=== PATIENT | female | born 1960 | race American Indian/Alaskan Native ===

== ENCOUNTER 2025-03-09 13:14 | Emergency (ER) | payer BC ==
[~2025-03-09] VITALS: Ht 160 cm; Wt 74.2 kg
--- NOTE | 2025-03-09 15:34 | Physician Documentation ---
History of Present Illness ~ Chief Complaint: Hip pain Stated Complaint: L HIP R/O DVT Time Seen by MD: 15:17 HPI 65-year-old female presents to the emergency department reporting that she has had inability to bear weight on the left leg for the last 48 hours. She denies any recent injury, but does note that late last week she was cleaning out a refrigerator. She notes a history of trauma to the hip and pelvis about 15 years ago. No recent injury. No fevers or chills, chest pain or shortness of breath, no symptoms of illness whatsoever. No tenderness to palpation of the hip. The pain is only reproducible with ambulation. Medication Reconciliation Allergies: Coded Allergies: No Known Allergies (Unverified , 03/09/25) Scheduled PRN Hydrocodone Bit/Acetaminophen (Hydrocodon-Acetaminophen 5-325), 1 TAB PO Q12H PRN PRN for pain Review of Systems ROS As stated above in the HPI, otherwise all systems are reviewed and negative. Physical Exam Vital Signs: Temperature: 98.4, Source: Temporal, Heart Rate: 70, Respiratory Rate: 16, BP: 161/92, Pulse Oximetry: 97, Weight: 74.250 Oxygen Flow Rate: 0 Physical Exam General: Alert, no apparent distress. Neck: Full range of motion. Respiratory: Lungs clear, no respiratory distress. Chest: No accessory muscle use. Cardiovascular: Regular rate and rhythm, no murmurs. Gastrointestinal: Soft, nontender, nondistended. Bowels sounds present. Extremities: Painful weight bearing left hip. No instability with palpation left hip/pelvis. No TTP over pelvis. Neurologic: Oriented x4. Psychiatric: Normal mood and affect. Skin: Normal color, warm and dry. No edema, no ecchymosis. No evidence of DVT or cellulitis to either lower extremity. Progress Results/Orders Results/Orders Orders - ADWOA HERNÁNDEZ NP Hip Unilateral 2 Views (03/09/25 15:51) Ct Lower Extremity (03/09/25 16:49) Hydrocodone/Apap 5/325mg Tab ([place] 5/32 (03/09/25 18:00) Completed Orders - ADWOA HERNÁNDEZ NP Ibuprofen Tablet (Motrin Tablet) (03/09/25 15:50) Hydrocodone/Apap 5/325mg Tab ([place] 5/32 (03/09/25 15:50) Hip Unilateral 2 Views (03/09/25 15:51) Ct Lower Extremity (03/09/25 16:49) Medications Received in ER Medications (Trade) Dose Ordered Sig/Koko Route PRN Reason Start Time Stop Time Status Last Admin Dose Admin (Motrin tablet) 400 mg ONCE ONCE PO 03/09/25 15:50 03/09/25 15:51 DC 03/09/25 16:05 400 MG ([place] 5/325mg tablet) 1 tab ONCE ONCE PO 03/09/25 15:50 03/09/25 15:51 DC 03/09/25 16:05 1 TAB Vital Signs 03/09/25 03/09/25 13:22 16:05 Temp 98.4 Pulse 70 Resp 16 18 B/P (MAP) 161/92 Pulse Ox 97 O2 Flow Rate 0 EKG/XRAY/CT/US/VASC/MRI Bone/Soft Tissue X-Ray (Spine) : Additional Comment DIAGNOSTIC RADIOLOGY Patient: RANDELL LOVE Medical Record: [id number] : 1960, Age: 65 Sex: Female Location: ER Patient Status: REG ER Service Date/Time: 03/09/251550 Ordering Physician: ADWOA HERNÁNDEZ NP Exam: HIP UNILATERAL 2 VIEWS CLINICAL INDICATION: Left hip pain, inability to bear weight TECHNIQUE: DI HIP UNILATERAL 2 VIEWS Comparison: None FINDINGS/IMPRESSION: : There is no evidence of acute fracture or dislocation. Soft tissues are unremarkable. Moderate degenerative changes of bilateral hips. Electronically Signed by:ROSCOE DOWLING MD Date & Time: 03/09/251609 Dictated by: ROSCOE DOWLING MD Dictation date and time: 03/09/251609 Primary Care Provider: NO PRIMARY CARE PROVIDER cc: ADWOA HERNÁNDEZ PAPER HANGER ~ CT : Impression [address] [address] CAT SCAN Patient: RANDELL LOVE Medical Record: [id number] [facility] : 1960, Age: 65 Sex: Female Location: ER Patient Status: [facility] ER Service Date/Time: 03/09/251648 Ordering Physician: ADWOA HERNÁNDEZ NP Exam: CT LOWER EXTREMITY CLINICAL INFORMATION: 65 years old, Female; Left hip pain, unable to bear weight. TECHNIQUE: Axial CT images of the left hip were obtained without IV contrast. Coronal and sagittal reformatted images were obtained, reviewed, and stored. All CT scans at this medical facility are performed using dose modulation techniques as appropriate to a performed exam including the following: Automated exposure control was utilized; adjustment of the MA and/or KV according to patient size; and use of iterative reconstruction technique. CTDIvol = 15.43 mGy DLP = 592.61 mGy-cm COMPARISON: Radiographs from earlier the same day. FINDINGS: No evidence of acute fracture or dislocation. There is a lucent lesion along the medial aspect of the left femoral head / neck junction measuring up to 1.8 cm, possibly a benign cyst, although not optimally characterized on this exam. No significant soft tissue abnormality identified. Visualized intrapelvic anatomy appears grossly unremarkable. IMPRESSION: 1. No evidence of acute fracture. 2. Lucent lesion in the left proximal femur, most likely benign etiology, although further evaluation with MRI, without and with contrast is recommended. Electronically Signed by:VISHAL JACKSON DO Date & Time: 03/09/251745 Dictated by: VISHAL JACKSON DO Dictation date and time: 03/09/251745 Primary Care Provider: NO PRIMARY CARE PROVIDER cc: ADWOA HERNÁNDEZ NP ~ Medical Decision Making Additional Comment 65-year-old female presented to the emergency department due to painful weight- bearing on the left for the last two days without injury. She does note remote history of trauma to the left hip and pelvis approximately 15 years ago, which required extensive recovery. No recent trauma, has been active cleaning out a refrigerator, but notes no falls or any other issues. Presents walking on crutches due to painful weight-bearing. Her bought these of the store. X-ray was pursued, no acute findings identified. Moderate arthritic changes noted per xray of both hips. CT showed a likely benign lesion to the left femur, for which follow up at with an outpatient MRI was recommended. The patient was discharged with a few hydrocodone and instructions to follow up with the primary care provider for orthopedics referral and MRI order. Departure Time of Disposition: 17:22 Disposition: 01 HOME / SELF CARE / HOMELESS Impression: Primary Impression: Hip pain Qualified Codes: M25.552 - Pain in left hip Condition: Stable Discharge Instructions: Hip Pain Additional Instructions: Your x-ray was normal. The CT scan showed a benign appearing lesion to the left femur area. This needs further follow up with your primary care. An MRI would most likely be appropriate. You were also being provided with the on-call orthopedist phone number. You will likely need a referral from your primary care to him. You are being sent with a few hydrocodone to use for pain. Cautioned for drowsiness, no driving x6 hours after taking a dose. Continue to use crutches. Please return if worse. Referrals: NO PRIMARY CARE PROVIDER (PCP) LUISA MUÑIZ Jr., MD Prescriptions Hydrocodone Bit/Acetaminophen (Hydrocodon-Acetaminophen 5-325) 5 Mg-325 Mg Tablet 1 TAB PO Q12H PRN PRN for pain for 5 Days, #10 TAB Prov: ADWOA HERNÁNDEZ NP 03/09/25 Education Educated: Patient, Family Educated regarding: diagnosis, treatment, prognosis, need for follow up Signature Scribe Signature: no scribe Attestation: The note accurately reflects work and decisions made by me.Adwoa Centeno NP 03/09/25 15:49 ADWOA HERNÁNDEZ NP Mar 09, 2025 15:34
[2025-03-09] MEDS: HYDROcodone/acetaminophen 5mg/325mg tablet PO ONE ×2 (16:05→18:06)
[2025-03-09] MEDS: ibuprofen tablet 400 MG TABLET PO ONE (16:05)
--- NOTE | 2025-03-09 16:12 | RADIOLOGY REPORT ---
CLINICAL INDICATION: Left hip pain, inability to bear weight TECHNIQUE: DI HIP UNILATERAL 2 VIEWS Comparison: None FINDINGS/IMPRESSION: : There is no evidence of acute fracture or dislocation. Soft tissues are unremarkable. Moderate degenerative changes of bilateral hips.
--- NOTE | 2025-03-09 17:48 | RADIOLOGY REPORT ---
CLINICAL INFORMATION: 65 years old, Female; Left hip pain, unable to bear weight. TECHNIQUE: Axial CT images of the left hip were obtained without IV contrast. Coronal and sagittal re formatted images were obtained, reviewed, and stored. All CT scans at this medical facility are perf ormed using dose modulation techniques as appropriate to a performed exam including the following: Au tomated exposure control was utilized; adjustment of the MA and/or KV according to patient size; and use of iterative reconstruction technique. CTDIvol = 15.43 mGy DLP = 592.61 mGy-cm COMPARISON: Radiographs from earlier the same day. FINDINGS: No evidence of acute fracture or dislocation. There is a lucent lesion along the medial asp ect of the left femoral head / neck junction measuring up to 1.8 cm, possibly a benign cyst, although not optimally characterized on this exam. No significant soft tissue abnormality identified. Visuali zed intrapelvic anatomy appears grossly unremarkable. IMPRESSION: 1. No evidence of acute fracture. 2. Lucent lesion in the left proximal femur, most likely benign etiology, although further evaluation with MRI, without and with contrast is recommended.
[2025-03-09] MEDS ORDERED: HYDR-3964 PO (17:53)
[2025-03-09 18:11] VITALS: BP 156/89; PULSE 78; RESP 16; TEMP 98.4; O2SAT 98
== END 2025-03-09 18:13 | disposition home or self-care (01) ==
LOC: ER 13:15
DX: M25.552 Pain in left hip (principal)
CPT/HCPCS: 73502; 73700; 99284

== ENCOUNTER 2025-08-07 13:59 | Inpatient (IN) | payer BC ==
[~2025-08-07] VITALS: Ht 162.6 cm; Wt 63.7 kg
--- NOTE | 2025-08-07 14:26 | Physician Documentation ---
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 I received a phone call from the patient's oncologist, Dr. Renae. 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 It is compressing the bronchi, and he is concerned about impending airway compromise. He spoke to Dr. Wright, our surgeon who agreed to biopsy the mass. The patient will be sent in for admission for further workup and treatment. He does request a CT scan of the neck and chest with contrast. Here in the ED, the patient tells me that she is currently breathing okay. She tells me it is difficult sometimes to breathe especially when she exerts herself. She denies any difficulty swallowing. She does report having some chronic discomfort in her throat. Medication Reconciliation Allergies: Coded Allergies: No Known Allergies (Unverified , 08/07/25) Review of Systems Constitutional: Reports: weakness; Denies: fever Respiratory: Reports: shortness of breath Physical Exam Vital Signs: Temperature: 97.2, Source: Temporal, Heart Rate: 104, Respiratory Rate: 20, BP: 131/86, Pulse Oximetry: 99, Weight: 63.700 Oxygen Flow Rate: 0 Physical Exam General: This is a pleasant and nontoxic appearing middle-aged woman, not in acute distress HEENT: Atraumatic, oropharynx is dry, no obvious swelling in the oropharynx Neck: The patient has multiple firm enlarged lymph nodes in the anterior chain. She does have some coarse upper airway noises but no significant stridor Heart: Mild tachycardic, appears regular Lungs: Coarse upper airway noises, but lungs are otherwise clear, normal work of breathing, normal oxygen saturation on room air Neuro: Alert and oriented Psychiatric: Calm and cooperative with exam Progress Results/Orders Results/Orders Orders - MERRITT DONIS MD Ct Neck Soft Tissues (08/07/25 15:50) Page Hospitalist (08/07/25 15:07) Ct Chest Abdomen Pelvis Iv Con (08/07/25 15:52) Completed Orders - MERRITT DONIS MD Cbc/Diff (08/07/25 14:36) CMP (08/07/25 14:36) Pt Inr (08/07/25 14:36) Ct Neck Soft Tissues (08/07/25 15:50) Ct Chest Abdomen Pelvis Iv Con (08/07/25 15:52) Iohexol 300mg/Ml 50ml Inj. (Omnipaque-30 (08/07/25 15:34) Iohexol 300mg/Ml 100ml Inj. (Omnipaque-3 (08/07/25 15:34) Vital Signs 08/07/25 08/07/25 08/07/25 14:03 16:00 16:07 Temp 97.2 97.2 Pulse 104 99 Resp 20 12 B/P (MAP) 131/86 136/80 (98) Pulse Ox 99 93 O2 Flow Rate 0 0 Laboratory Tests Test 08/07/25 14:50 White Blood Count 7.9 Red Blood Count 3.93 L Hemoglobin 11.3 L Hematocrit 34.4 L Mean Corpuscular Volume 87.5 Mean Corpuscular Hemoglobin 28.8 Mean Corpuscular Hemoglobin Concent 32.9 L Red Cell Distribution Width 14.8 H Platelet Count 320 Mean Platelet Volume 7.4 Neutrophils (%) (Auto) 77.1 H Lymphocytes (%) (Auto) 13.6 L Monocytes (%) (Auto) 7.4 Eosinophils (%) (Auto) 1.2 Basophils (%) (Auto) 0.7 Neutrophils # (Auto) 6.1 Lymphocytes # (Auto) 1.1 Monocytes # (Auto) 0.6 Eosinophils # (Auto) 0.1 Basophils # (Auto) 0.1 CBC Comment Prothrombin Time 11.4 INR International Normalized Ratio 1.1 Coagulation Comments Sodium Level 139 Potassium Level 3.4 L Chloride Level 98 L Carbon Dioxide Level 30.6 Anion Gap 10 Blood Urea Nitrogen 34 H Creatinine 0.94 H Estimated GFR/1.73 m2 60 BUN/Creatinine Ratio 36.2 H Glucose Level 103 Calcium Level 9.5 Total Bilirubin 0.9 Aspartate Amino Transf (AST/SGOT) 26 Alanine Aminotransferase (ALT/SGPT) 24 Alkaline Phosphatase 94 Total Protein 8.8 H Albumin 3.5 Globulin 5.3 H Albumin/Globulin Ratio 0.7 L Chemistry Comments EKG/XRAY/CT/US/VASC/MRI CT : Impression I personally interpreted the CT scan, and this shows a mediastinal mass, no upper airway obstruction Consults/PCP Consults/PCP : Additional Comment Consult: I spoke to Dr. Renae, oncology. He recommends admission for biopsy, and CT imaging. Consult: I spoke to Dr. Wright, surgeon. He agrees with CT chest and neck, and he will consult Consult: I spoke to the internal medicine service, for admission in the hospital Medical Decision Making Additional information obtaine: other Findings Spoke to the oncologist for further information Ear Diff. Dx: Considerations: Unlikely: Cerumen impaction Eye Diff. Dx: Considerations: Unlikely: Conjuctivits-allergic Nose Diff. Dx: Considerations: Unlikely: Avulsion Tooth Diff. Dx: Considerations: Unlikely: Aveolar osteitis Throat Diff Dx: Considerations: Unlikely: Esophageal candidiasis Additional Comment Differential diagnosis includes mediastinal mass, cancer, airway compromise, dehydration Assessment The patient presents with a mediastinal mass, with plan for admission for b iopsy. Here in the ED, her airway does not seem acutely compromised she is swallowing without apparent difficulty. I spoke to her oncologist as above. A CT scan was obtained which further evaluated the mediastinal mass. Surgery was also consulted as above. The patient will be admitted for further care. Departure Impression: Primary Impression: Mediastinal mass Referrals: NO PRIMARY CARE PROVIDER (PCP) Signature Scribe Signature: na Attestation: MERRITT Longoria MD Aug 07, 2025 14:26
[2025-08-07 15:11] LABS: MEAN PLATELET VOLUME 7.4 FL (7.4-10.4); RED CELL DISTRIBUTION WIDTH 14.8 % (11.5-14.5)
[2025-08-07 15:28] LABS: CREATININE 0.94 MG/DL (0.40-0.90); INR 1.1 INR; TOTAL CARBON DIOXIDE 30.6 MMOL/L (24-32); eCRCL 52 ML/MIN; eGFR 60 ML/MIN
[2025-08-07] MEDS ORDERED: iohexol 300mg/ml 100ml inj. ONE (15:34)
[2025-08-07] MEDS ORDERED: iohexol 300 MG/1 ML 50ml polymer ONE (15:34)
--- NOTE | 2025-08-07 16:08 | RADIOLOGY REPORT ---
COMPUTERIZED TOMOGRAPHY OF THE NECK WITH INTRAVENOUS CONTRAST CLINICAL HISTORY: mediastinal mass, difficulty breathing COMPARISON: CT CT CHEST ABDOMEN PELVIS IV CON W/ IV CONTRAST on DOS: 08/07/25 TECHNIQUE: The exam was performed on a multidetector scanner. Thin section spiral scans were acquired from the external auditory canals to the thoracic inlet during the bolus intravenous administration of contrast material. 2-D coronal and sagittal reformatted images were provided. Radiation optimization: All CT scans at this facility use at least one of these dose optimization techniques: Automated exposure control mA and/or kV adjustment per patient size (includes targeted exams where dose is matched to clinical indication) or iterative reconstruction. CONTRAST ADMINISTERED: 60 mL omnipaque 300, intravenously. RADIATION DOSE: CTDI: 14 mGy DLP: 436 mGy-cm FINDINGS: There is partial visualization of the large mediastinal mass surrounding the lower trachea and causing some mass effect upon it. The mass obliterates and is indistinguishable from the esophagus within the mediastinum. The mass extends into the AP window. The thyroid gland is grossly unremarkable. There is lymphadenopathy in the right supraclavicular and anterior cervical regions. There is a 2.1 cm right level 2 lymph node that appears The largest just inferior to the mandibular ramus. The upper airway is patent and grossly symmetric. The fossa of Rosenmuller are clear. The palatine and lingual tonsils are within normal limits. The intraorbital contents are grossly unremarkable. The visualized intracranial contents are within normal limits. There is trace fluid within the right maxillary sinus. No focal bony lesion is identified. There are degenerative changes in the visualized spine. IMPRESSION: Partial visualization of a mediastinal mass enveloping and causing mild mass effect on the trachea and obliterating the esophagus. Right supraclavicular and anterior cervical lymphadenopathy. The largest lymph node measures 2.1 cm just inferior to the right mandibular ramus. Trace fluid in the right maxillary sinus. Correlate clinically for acute sinusitis.
--- NOTE | 2025-08-07 16:42 | RADIOLOGY REPORT ---
Procedure: CT CT CHEST ABDOMEN PELVIS IV CON W/ IV CONTRAST 08/07/2025 03:41 PM Indication: mediastinal mass, cancer Comparison Study: None Technique: Axial images were obtained and reformatted in coronal and sagittal planes. All CT scans at this medical facility are performed using dose modulation techniques as appropriate to a performed exam including the following: Automated exposure control was utilized; adjustment of the MA and/or KV according to patient size; and use of iterative reconstruction technique. CT Dose: CTDI volume is 13.02 mGy. Dose-length product is 1098.86 mGy*cm FINDINGS: Chest: The thyroid gland is unremarkable. Heart size is within normal limits. No evidence of aortic aneurysm or dissection. Mild atherosclerotic calcification of the aorta. Pulmonary trunk is normal in size. There is large mediastinal mass encasing the trachea esophagus causing [id number]-sryanybp narrowing of the distal trachea with moderate narrowing of the bafkv-wgrzwyx-pluy-left main bronchi. There is poor visualization of the esophagus of the area of the mass. There is additional infrahilar soft tissue density lesion measuring up to 3 cm which appears inseparable from the mass and may represent part of the mass or lymphadenopathy. Right hilar lymphadenopathy. No pneumothorax or pleural effusion. Lingula, right middle lobe and Bilateral lower lobe atelectasis. 1.2 cm left posterior upper lobe partially calcified nodule which may represent a partially calcified granuloma. Calcified nodule within the right lateral breast. Soft tissues otherwise unremarkable. Right axillary lymphadenopathy measuring up to 1.5 cm in short axis. Right lower neck prominent lymph nodes measuring up to 1.3 cm in short axis. No evidence of acute osseous abnormalities. Sclerotic focus of the right proximal humerus which may represent a small bone island. Multilevel eeqd-ki-hyfdxspn degenerative changes of the thoracic spine. Abdomen and pelvis: Subtle micronodular contour of the liver. 2.7 cm hypodense right hepatic lobe lesion which does not measure simple fluid with additional 0.2 cm left hepatic lobe hypodense lesion which does not measure simple fluid smaller subcentimeter hypodense left hepatic lobe lesions that are too small to characterize. Subtle subcentimeter hypodense splenic lesions are noted. Status post cholecystectomy. Pancreas and right adrenal gland are unremarkable. 2.1 cm left adrenal nodule measuring up to 93 Hounsfield units. 1.2 cm right renal upper pole hypodense lesion which does not measure as simple fluid, adjacent to an area of possible scarring. Contrast is noted within the bilateral renal collecting system. Urinary bladder is unremarkable. Uterus and adnexa are unremarkable. Stomach is unremarkable. Mild wall Thickening of proximal Small bowel loops which may be due to inadequate distention with mild enteritis not excluded. Appendix is unremarkable. Small to moderate amount of fecal material within the colon. No evidence of intraperitoneal free air or free fluid. There is retroperitoneal and pelvic sidewall lymphadenopathy largest of the pelvic sidewall measuring up to 2.2 cm on the right with largest retroperitoneal node measuring up to 0.3 cm adjacent to the L5 vertebral body. Moderate to heavy atherosclerotic calcification of the aorta and bilateral iliacs with aneurysmal dilatation of the infrarenal aorta up to 3.4 cm. Mild prominence of the left pelvic vasculatures with splenorenal varicose veins noted. Prominent bilateral inguinal lymph nodes measuring up to 1.3 cm Soft tissues are unremarkable. Suggesting hemangioma within the L2 vertebral body. Grade 1 anterolisthesis of L5 on S1 with bilateral chronic L5 pars defect. Diffuse demineralization. Lytic lesion of the femoral head with anterior cortical disruption, concerning for metastasis IMPRESSION: Large mediastinal mass encasing the trachea and esophagus with indistinctness of the esophagus at the level of the mass, moderate narrowing of the sqddx-sfuszmq-gxgo-left main bronchi and mild narrowing of the distal trachea. Right hilar with Suggested infrarenal lymphadenopathy and multiple retroperitoneal , pelvic sidewall , right axillary and bilateral inguinal prominent lymph nodes which are most likely neoplastic. Hypodense hepatic lesions concerning for metastasis. Subtle hypodense splenic lesions concerning for possible metastasis. 1.2 cm right renal upper pole hypodense lesion which does not measure simple fluid. Renal ultrasound is recommended for further evaluation. Ill-defined 2.1 cm left adrenal nodule. Adrenal protocol CT / MRI should be considered for further evaluation. Lytic left femoral head lesion most consistent with metastasis. Aneurysmal dilatation of the infrarenal aorta up to 3.4 cm. Additional findings as above.
[2025-08-07] MEDS ORDERED: magnesium Cl slow-release 64mg tablet PO PRN (18:20)
[2025-08-07] MEDS ORDERED: magnesium sulf-water 2g/50mL 50 ML IV PRN (18:20)
[2025-08-07] MEDS ORDERED: bisacodyl 10mg suppository rectal RC PRN (18:20)
[2025-08-07] MEDS ORDERED: magnesium sulf-water 4G/100mL 100 ML IV PRN (18:20)
[2025-08-07] MEDS ORDERED: potassium Cl 20 mEq SR tablet PO PRN ×2 (18:20)
[2025-08-07] MEDS ORDERED: HYDROmorphone/PF 0.2 MG/ML SYRINGE IV PRN (18:20)
[2025-08-07] MEDS ORDERED: ondansetron/PF 4mg/2ml inj IV PRN (18:20)
[2025-08-07] MEDS ORDERED: magnesium hydroxide 30ml (MOM) UD suspension PO PRN (18:20)
[2025-08-07] MEDS ORDERED: mag hydrox/Alum hydrox/simeth 30ml oral suspension PO PRN (18:20)
--- NOTE | 2025-08-07 19:07 | HISTORY AND PHYSICAL-Residence ---
History & Physical Providers to CC Resident Creating Document: VERNA SRINIVASAN RES ~ History of Present Illness Reason for Admit\Complaint: Acute respiratory distress w/ advanced mets from unknown primary History of Present Illness A 65 years old subjectively previously healthy female with hypertension, thyroid disorder, and S/p cholecystectomy, who presented with the progressive worsening shortness of breath, stuck feeling at throat, hearing loss and progressive widespread body aching with losing ability to ambulate independently along with the changes in the weight and appetite over past 3-4 weeks. Pt has bilateral hearing difficulties more on the left side. She was seen in ER with her . Joaquín Mehta recommended her to be hospitalized here to obtain the imaging scan and lymph node biopsy. The patient endorsed that she started having the progressive shortness of breath since she had pneumonia on last November which was associated with the intermittent coughing up of the blood over 3-4 weeks. She denied long distance traveling history, recent cancer diagnosis and its treatment. She denied for the chest pain/pressure/discomfort, palpitations orthopnea and PND, bilateral ankle swelling, and passing out episodes. She noticed that her ability to walk independently was compromised since she was here in ER on the last March with the complaint of left hip pain after she lifted the heavy objects, where she found no pathological abnormalities over the bone imaging. Since then, she started having dependent on walking aids along with the numbness over her left leg, and widespread pain over her both shoulder blades and lower back with the shooting pain and numbness over both arms within 3-4 weeks. She did not find any special position related to her pain, but was associated with the repetitive movements of the muscle would make worse. No special time of occurrence. Denied any prodromal flu like symptoms and GI abnormalities including bloody bowel movement and ascending paralysis. She denied for any evening night sweat and fever although she reported for the intentional weight loss 10-15 lbs in 2 months with declining appetite. She subjectively denied for any generalized lumps and bumps. Denied for the nausea and vomiting especially at the night time, fluctuating yellow coloration of skin and sclera history, any new dyspesisa and new malaise and lethargic. She is menopause and no special background Gynae history. She started noticing something stucking feeling over the base of her neck which was associated with the difficulty in swallowing especially for the food which is progressive in nature without providing any history of accidental or intentional swallowing of the corrosive substances. She could swallow her own saliva for now. Not associated with the special time of difficulty swallowing over a day. Also noticed about the changes in her voices over the last 3-4 weeks along with the intermittent wheezing for which she was using the inhalers. She started having the progressive bilateral hearing loss over the 3-4 weeks but denied for any new visual changes, increasing bony circumferences, and headaches etc. She denied for losing hair and dry skin, but cold intolerance, constipation. Allergies: Coded Allergies: No Known Allergies (Unverified , 08/07/25) Home Medications Home Medications Active Past Medical History Past Medical History Hypertension, thyroid disorder on levothyroxine Past Surgical History Surgical History Comment S/p cholecystectomy Past Social History Social History Comment She is currently living with her who is helping her out. She has been smoking over 30 years, cut down to 16-27 cigarettes per day, cutting back on drinking alcohol with a 2-3 days per week with one shot of Vodka. She denied using illicit drugs. She is depending on the walking aids for the ambulation. ROS All Other Systems: Reviewed and Negative ROS Constitutional: No fever, chills, dizziness, weight gain Eyes: No pain, erythema, discharge, blurring of vision ENT: No sore throat, epistaxis, tinnitus Cardiovascular: No chest pain, chest pressure, chest discomfort, palpitations, syncope, lower extremity edema, paroxysmal nocturnal dyspnea Respiratory: As in HPI Gastrointestinal: Declining appetite. No nausea, vomiting, diarrhea, hematemesis, abdominal pain, bloating, melena or fresh blood Genitourinary: No frequency, urgency, nocturia, hematuria or dysuria Musculoskeletal: No arthralgias or myalgias Integumentary: No change in skin, hair, nails. No swelling, bruising, abrasions Neurologic: No headache, neck pain, numbness or tingling of the extremities, weakness Psychiatric: No delusions, depression, loss of interest in normal activity or change in sleep pattern, hallucinations, suicidal ideations Endocrine: No fatigue, weakness, polydipsia, polyuria, change in appetite, heat or cold intolerance, sweating, dry skin Hematological: No bleeding, petechiae, bruising Allergies: No asthma or urticaria Constitutional: Reports: weakness; Denies: fever Respiratory: Reports: shortness of breath Exam Vitals: Vital Signs Date Time Temp Pulse Resp B/P (MAP) Pulse Ox O2 Delivery O2 Flow Rate FiO2 08/07/25 16:07 08/07/25 16:00 97.2 99 12 93 0 General: General: Well alert, well oriented, not confused, not agitated, not in acute distress, well cooperated during the physical. HEENT: HEENT: Conjunctive are pink, sclerae clear, no icterus, pupil is equal in both sides, reactive to light, no ear discharge, no pharyngeal erythema or an edema, mouth and lips are dry. Neck: Neck: Supple, no JVD, no lymphadenopathy and thyromegaly. Lymphadenopathy: largest one 3 x 4 cm oval shaped firm to hard in consistency partially mobile located at the right anterior cervical neck, numerous small hard lymph nodes along the lateral border of SCM muscle, supra clavicular LN but no subclavicular LN were examined. NO Bilateral axillary LN and Inguinal LN were large enough to be palpated except for the some small LN in the right axilla. NO submentle and submandibular LN adenopathy. NO occipital and posterior cervical lymphadenopathy. Chest: Lungs:Equal air entry on both lungs, widespread rhonchi bilaterally Cardiovascular: Heart: S1-S2 regular sinus rhythm and, regular rate, no gallops, no rubs, no murmurs Abdomen: Abdomen: No visible peristalsis, Bowel sounds present on auscultation, soft, nontender, no guarding, no rigidity Extremities: Extremities: No obvious deformities, no pitting edema bilaterally, capillary refill intact, able to wiggle toes both sides, peripheral pulsations are intact on both sides. some calf muscle wasting were noted. Central Nervous System: TELEPHONE CLAIMS REPRESENTATIVE: No focal neurological deficits, no motor and sensory weakness in all 4 extremities, could move all 4 extremities Musculoskeletal: Musculoskeletal: No joint swelling, deformities, inflammations, and no scoliosis and back tenderness Skin: Skin: No active skin lesions and rashes Diagnostic Data Last Recorded Lab Results: 08/07/25 1450 08/07/25 1450 Diagnostic Data: Laboratory Tests Test 08/07/25 14:50 Prothrombin Time 11.4 SECONDS (9.0-12.0) INR International Normalized Ratio 1.1 INR Coagulation Comments Counseling Services Smoking & Tobacco Cessation: > 10 Minutes Advance Care Planning Advanced Care plannin - 30 Minutes Additional Plan A 65 years old subjectively previously healthy female with hypertension, thyroid disorder, and S/p cholecystectomy, who presented with the progressive worsening shortness of breath, stuck feeling at throat, hearing loss and progressive widespread body aching with losing ability to ambulate independently along with the changes in the weight and appetite over past 3-4 weeks. 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 -The possible primary would be from the lungs/ breast/ Bone marrow origins/ GI and pancreatic/ GynOnc -required for the tissue sample for the histology confirmation to initiate the suspected malignancy -neck CT with IV contrast on 08/07/2025 showed Partial visualization of a mediastinal mass enveloping and causing mild mass effect on the trachea and obliterating the esophagus. Right supraclavicular and anterior cervical lymphadenopathy. The largest lymph node measures 2.1 cm just inferior to the right mandibular ramus. Trace fluid in the right maxillary sinus. Correlate clinically for acute sinusitis. -CT C,A,P w/ IV Contrast on 08/07/25 showed 1.2 cm left posterior upper lobe partially calcified nodule which may represent a partially calcified granuloma. Calcified nodule within the right lateral breast. Large mediastinal mass encasing the trachea and esophagus with indistinctness of the esophagus at the level of the mass, moderate narrowing of the [id number]-[id number]-[id number]-left main bronchi and mild narrowing of the distal trachea. Right hilar with Suggested infrarenal lymphadenopathy and multiple retroperitoneal , pelvic sidewall , right axillary and bilateral inguinal prominent lymph nodes which are most likely neoplastic. Hypodense hepatic lesions concerning for metastasis. Subtle hypodense splenic lesions concerning for possible metastasis. 1.2 cm right renal upper pole hypodense lesion which does not measure simple fluid. Renal ultrasound is recommended for further evaluation. Ill-defined 2.1 cm left adrenal nodule. Adrenal protocol CT / MRI should be considered for further evaluation. Lytic left femoral head lesion most consistent with metastasis. Aneurysmal dilatation of the infrarenal aorta up to 3.4 cm. Uterus and adnexa are unremarkable. Plan: -pt was explained for the possible advanced malignant spread with the unknown primary what was evident with the imaging -discussed the brief goal of therapy in the presence of pt's including plans with the tomorrow LN Bx -Dr Oc Toscano and Dr Wright were requested for the consultation, appreciate it -NPO after MN for tomorrow Bx -ipratropium/albuterol q.4 hours PRN for wheezing -pending Immunofixation, and light chain study, protein electrophoresis for the normochromic normocytic anemia, hyperglobulinemia, slightly elevated creatinine level. -pending procalcitonin to rule out acute infection ,and D Dimer -banding hepatitis B and HIV status -control the pain with hydromorphone as needed # GUILLERMINA - possibly from prerenal/vasomotor nephropathy # elevated BUN creatinine ratio- possible dehydration # mild electrolyte imbalances-hypokalemia, hypochloremia -no baseline creatinine level -pending urine lytes -continuous monitoring declining rate of GFR with time -elevated BUN creatinine ratio >20 with no evidence of GI bleed -replace as per protocol as needed -maintain optimal oral hydration status # Aneurysmal dilatation of the infrarenal aorta up to 3.4 cm -follow up with the outpatient management -no active symptoms and intervention was indicated at that moment # Hypertension # Thyroid disorder -med rec is pending -Ordrered TSH Lipid and HbA1C # Substance use disorder -social work therapist were requested, appreciate it -educated the link between risk of cancers and substance use disorder, and strongly encouraged quit using substance -mild alcohol withdrawal protocol along with multivitamins, folic acid and vitamin B1 injections -nicotine patch 14 mg daily only as needed for nicotine craving CODE STATUS: Full code DVT prophylaxis: SC heparin 5000 units b.i.d. Analgesia/sedation: IV hydromorphone as needed Lines/tubes: PIV GI prophylaxis: None Nutrition: NPO after midnight Prognosis: Guarded Disposition: Continue medical management, proceed with lymph node biopsy by Dr. Wright tomorrow, Oncology consultation for further outpatient management plan, and PT eval and DC plan. Resident MD attestation: Patient was seen, examined and discussed with attending MD, Dr. Blaze SRINIVASAN MD Internal Medicine Resident, PGY3 [facility] Date of Service: Aug 07, 2025 Billing Provider: HARRY ARGUETA MD Common Visit Codes: 30297-[id number] INP/OBS CARE (HIGH) VERNA SRINIVASAN, RES Aug 07, 2025 19:07 HARRY ARGUETA MD Aug 12, 2025 07:30
[2025-08-07] MEDS ORDERED: ipratropium/albuterol 3ml nebule NEB PRN (19:10)
[2025-08-07] MEDS ORDERED: nicotine 14mg patch - 24hr TD PRN (19:10)
[2025-08-07 19:23] LABS: PRO BRAIN NATRIURETIC PEPTIDE 183 PG/ML (0-125)
--- NOTE | 2025-08-07 19:59 | PROGRESS NOTE ---
Progress Note ID Providers to CC ~ Progress Note Progress Note: pt seen and examined-pt needs excisional biopsy of right cervical node in am RUSS HART MD Aug 07, 2025 19:59
[2025-08-07] MEDS: K and/or MAG REPLACEMENT MC SCH (20:00)
[2025-08-07] MEDS: heparin, porcine 5000 units/ml vial SQ SCH (20:00)
[2025-08-07] MEDS: docusate sod 100mg capsule PO SCH (20:00)
[2025-08-07 20:27] VITALS: PULSE 52; RESP 18; O2SAT 96
[2025-08-07] MEDS: thiamine 100mg/ml 2ml inj. IV SCH (21:08)
[2025-08-07 22:00] VITALS: BP 120/64; PULSE 57; RESP 16; TEMP 99.4; O2SAT 97
[2025-08-08] VITALS (21 sets, daily range): BP systolic 102–134; BP diastolic 50–82; PULSE 80–102; RESP 12–24; TEMP 97.5–98.8; O2SAT 89–100
[2025-08-08] MEDS: normal saline 1000ml 1,000 ML IV SCH (00:13)
[2025-08-08] MEDS: ceFAZolin/D5W- 1GM premix 50 ML IV SCH (00:13)
[2025-08-08] MEDS ORDERED: MELO-102 PO (00:19)
[2025-08-08] MEDS ORDERED: AMLO10TA13 PO (00:19)
[2025-08-08] MEDS ORDERED: ROSU10TA98 PO (00:19)
[2025-08-08] MEDS ORDERED: LEVO125T PO (00:19)
[2025-08-08] MEDS: HYDROmorphone inj. 0.5 MG/0.5 ML DISP.SYRIN IV PRN (00:45)
[2025-08-08 01:15] LABS: LEUKOCYTE ESTERASE ,URINE NEGATIVE (Neg); NITRITES, URINE POSITIVE (Neg); OCCULT BLOOD,URINE NEGATIVE (Neg)
[2025-08-08 01:23] LABS: CREATININE,URINE RANDOM 61.0 MG/DL; TOTAL PROTEIN,URINE RANDOM 29.0 MG/DL
[2025-08-08 01:46] LABS: UA COLLECTION TYPE CLN CATCH MIDSTREAM
[2025-08-08 01:47] LABS: SQUAMOUS EPITHELIAL CELL,UR FEW /LPF (FEW)
[2025-08-08] MEDS: potassium Cl 40MEQ/1/2NS 520ml 520 ML IV PRN (02:24)
[2025-08-08] MEDS: potassium Cl 40MEQ/1/2NS 520ml 520 ML IV ONE (02:29)
[2025-08-08 05:57] LABS: MEAN PLATELET VOLUME 7.7 FL (7.4-10.4); RED CELL DISTRIBUTION WIDTH 14.7 % (11.5-14.5)
[2025-08-08 06:15] LABS: CHOL/HDL RATIO 2.1 (0.00-4.99); CREATININE 0.76 MG/DL (0.40-0.90); LDL CHOLESTEROL 42 MG/DL (50-100); TOTAL CARBON DIOXIDE 29.8 MMOL/L (24-32); eCRCL 65 ML/MIN; eGFR 77 ML/MIN
[2025-08-08 06:48] LABS: HIV ANTIBODY 1&2 RAPID NON-REACTIVE (Neg)
[2025-08-08] MEDS: multivitamins, therapeutics tablet PO SCH (07:27)
[2025-08-08] MEDS: FLU VACC TS2025-26(6MOS UP)/PF (FLULAVAL) 45 MCG/0.5 ML SYRINGE IMVAC ONE (07:49)
[2025-08-08] MEDS ORDERED: BUPIVAcaine 2.5mg/ml inj 50ml vial (contains preservative) ONE (08:59)
[2025-08-08] MEDS ORDERED: labetalol 20mg/4ml (5mg/ml) syringe IV PRN (09:05)
[2025-08-08] MEDS ORDERED: hydrALAZINE 20mg/ml inj. IV PRN (09:05)
[2025-08-08] MEDS ORDERED: ringers solution, lacted 1,000 ML IV SCH (09:05)
[2025-08-08] MEDS ORDERED: morphine 4 MG/ML inj SYRINge IV PRN (09:05)
[2025-08-08] MEDS ORDERED: fentaNYL/PF 50MCG/1 ML 2ML syringe IV PRN ×2 (09:05)
[2025-08-08] MEDS ORDERED: ondansetron/PF 4mg/2ml inj IV PRN ×2 (09:05→12:00)
[2025-08-08] MEDS ORDERED: fentaNYL/PF 50MCG/1 ML 2ML syringe ONE (10:41)
--- NOTE | 2025-08-08 10:41 | PROGRESS NOTE ---
Progress Note ID Providers to CC ~ Progress Note Progress Note: discussed procedure including risks/benefits/alternatives RUSS HART MD Aug 08, 2025 10:41
[2025-08-08] MEDS ORDERED: MIDAZolam 1 MG/ML 5ML VIAL ONE (10:42)
[2025-08-08] MEDS ORDERED: propofol inj 20 ML IV ONE (11:00)
--- NOTE | 2025-08-08 11:58 | OPERATIVE REPORT ---
Operative Report Providers to CC ~ Date of Procedure: Aug 08, 2025 Pre-Operative Diagnosis: anterior cervical mass Post-Operative Diagnosis SAME as PRE-Op Procedure Performed excisional biopsy anterior cervical mass Surgeon: jayden granados Anesthesiologist: Alpesh Huerta Type of Anesthesia: General Findings: 2 cm neck mass-frozen reveals malignant process-tissue sent for flow and perm anent studies Estimated Blood Loss: min Specimen Removed: neck mass RUSS HART MD Aug 08, 2025 11:58
[2025-08-08] MEDS ORDERED: HYDROcodone/acetaminophen 5mg/325mg tablet PO PRN (12:00)
[2025-08-08] MEDS: folic acid 1mg/0.2ml inj IV SCH (13:20)
--- NOTE | 2025-08-08 15:14 | OPERATIVE REPORT ---
DATE OF SURGERY: 08/08/2025 DICTATING PHYSICIAN: Yon Wright MD PREOPERATIVE DIAGNOSIS: Right neck mass. POSTOPERATIVE DIAGNOSIS: Right neck mass. PROCEDURE: Excisional biopsy of right neck mass. SURGEON: Yon Wright MD MOTOR DRIVER: Frida. ANESTHESIA: General/Dr. Huerta. DRAINS: None. INDICATIONS FOR OPERATION: A 65-year-old female with progressive shortness of breath, found to have a large mediastinal mass as well as cervical adenopathy, taken to surgery for excisional biopsy for diagnostic purposes. INTRAOPERATIVE FINDINGS: A 2-cm mass in the right anterior neck. DESCRIPTION OF PROCEDURE: The patient was placed supine on the operating table. After the induction of general anesthesia, the neck was prepped and draped. Neck was infiltrated with 1% lidocaine. incision subsequently made. Incision was extended to fascia. A large mass was identified in the anterior neck. Mass mobilized and simply excised en bloc. Hemostasis was obtained. Tissue was sent to pathology for frozen section as well as studies. Frozen revealed a high-grade malignant process. Wounds were irrigated with antibiotic-containing solution and closed in layers. Skin closed with a subcuticular stitch. Dressings applied. The patient was transferred to recovery in stable condition after reversing from general anesthesia. Yon Wright MD TID: [id number] RECEIPT: [id number] KB/VERONICA cc: Db Renae MD
--- NOTE | 2025-08-08 18:51 | DISCHARGE SUMMARY-Residence ---
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 Wright on 08/08/2025 without having any complications Consultants: Dr. Wright, surgery Everton Mehta (Over phone consultation) Complications: None Condition on DC: Stable Continued Medications: Amlodipine Besylate (Amlodipine Besylate) 10 Mg Tablet 1 TAB PO DAILY Levothyroxine Sodium (Synthroid) 125 Mcg Tablet 1 TAB PO DAILY Meloxicam (Meloxicam) 15 Mg Tablet 1 TAB PO DAILY Rosuvastatin Calcium (Rosuvastatin Calcium) 10 Mg Tablet 1 TAB PO HS Discharge Summary: A 65 years old subjectively previously healthy female with hypertension, thyroid disorder, and S/p cholecystectomy, who presented with the progressive worsening shortness of breath, stuck feeling at throat, hearing loss and progressive widespread body aching with losing ability to ambulate independently along with the changes in the weight and appetite over past 3-4 weeks. Hospital course: Given history of progressive acute respiratory distress associated with the worsening dysphagia, and generalized pain with the declining ability to ambulate found to have multiple advanced mets lesions and lytic bone lesions in the imaging, pt was admitted to hospital for the whole body scan for the primary and possible LN Bx. The possible primary would be from the lungs/ breast/ Bone marrow origins/ GI and pancreatic/ GynOnc which required for the tissue sample for the histology confirmation to initiate the suspected malignancy. Patient and her were explained for the possible advanced malignant spread with the unknown primary what was evident with the imaging, including plans with the tomorrow LN Bx. Dr Oc Yanes and Dr Wright surgery were requested for the consultation including further management. In the presence of normochromic normocytic anemia, hyperglobulinemia and impaired renal function demanded for investigation with Immunofixation, and light chain study, protein electrophoresis, which are pending. Hepatitis B serology were pending, nonreactive HIV one and two antibody serology. Her respiratory distress was possibly from the mediastinal mass and lymphadenopathy invasion and compression to trachea and bronchi which was explained to patient and already. Her respiration was supported with nebulization DuoNeb therapy as needed. Her kidney function was supported with catching oral fluid as much as possible and tracking and kidney function daily CMP and I's and o's. program services planner were requested after she was educated the link between risk of cancers and substance use disorder, and strongly encouraged quit using substance. Mild alcohol withdrawal protocol along with multivitamins, folic acid and vitamin B1 injections were provided during her hospitalization for extensive history of ETOH use disorder. Her craving for nicotine and tobacco was controlled with nicotine patch 14 mg daily only as needed. DVT prophylaxis was achieved with SC heparin 5000 units b.i.d. and pain was controlled well with IV hydromorphone/ PO [place] as needed. All of her home medications were reviewed, reconciled and continue appropriately during hospitalization. All of her questions and con cerns were addressed with the best knowledge of our team before she was discharged back home today. She has not have any side effects/complications from the surgery today and there is no more indication to be done during hospitalization from surgical and hospitalist standpoint in addition of patient is showing some improvement since on admission. She will be follow up with Dr. Wright and Dr. Renae kinsman Oncology for further management. Imaging during hospitalization: -neck CT with IV contrast on 08/07/2025 showed Partial visualization of a mediastinal mass enveloping and causing mild mass effect on the trachea and obliterating the esophagus. Right supraclavicular and anterior cervical lymphadenopathy. The largest lymph node measures 2.1 cm just inferior to the right mandibular ramus. Trace fluid in the right maxillary sinus. Correlate clinically for acute sinusitis. -CT C,A,P w/ IV Contrast on 08/07/25 showed 1.2 cm left posterior upper lobe partially calcified nodule which may represent a partially calcified granuloma. Calcified nodule within the right lateral breast. Large mediastinal mass encasing the trachea and esophagus with indistinctness of the esophagus at the level of the mass, moderate narrowing of the kyynn-hderxvp-sihl-left main bronchi and mild narrowing of the distal trachea. Right hilar with Suggested infrarenal lymphadenopathy and multiple retroperitoneal , pelvic sidewall , right axillary and bilateral inguinal prominent lymph nodes which are most likely neoplastic. Hypodense hepatic lesions concerning for metastasis. Subtle hypodense splenic lesions concerning for possible metastasis. 1.2 cm right renal upper pole hypodense lesion which does not measure simple fluid. Renal ultrasound is recommended for further evaluation. Ill-defined 2.1 cm left adrenal nodule. Adrenal protocol CT / MRI should be considered for further evaluation. Lytic left femoral head lesion most consistent with metastasis. Aneurysmal dilatation of the infrarenal aorta up to 3.4 cm. Uterus and adnexa are unremarkable. Labs: Laboratory Tests Test 08/07/25 14:50 08/07/25 18:44 08/08/25 00:30 08/08/25 05:05 White Blood Count 7.9 X10'3 7.5 X10'3 Red Blood Count 3.93 X10'6 3.51 X10'6 Hemoglobin 11.3 g/dl 10.3 g/dl Hematocrit 34.4 % 30.5 % Mean Corpuscular Volume 87.5 FL 86.8 FL Mean Corpuscular Hemoglobin 28.8 PG 29.3 PG Mean Corpuscular Hemoglobin Concent 32.9 g/dL 33.8 g/dL Red Cell Distribution Width 14.8 % 14.7 % Platelet Count 320 X10'3 298 X10'3 Mean Platelet Volume 7.4 FL 7.7 FL Neutrophils (%) (Auto) 77.1 % 76.3 % Lymphocytes (%) (Auto) 13.6 % 14.3 % Monocytes (%) (Auto) 7.4 % 7.3 % Eosinophils (%) (Auto) 1.2 % 1.5 % Basophils (%) (Auto) 0.7 % 0.6 % Neutrophils # (Auto) 6.1 X10'3 5.7 X10'3 Lymphocytes # (Auto) 1.1 X10'3 1.1 X10'3 Monocytes # (Auto) 0.6 X10'3 0.5 X10'3 Eosinophils # (Auto) 0.1 X10'3 0.1 X10'3 Basophils # (Auto) 0.1 X10'3 0.0 X10'3 CBC Comment Prothrombin Time 11.4 SECONDS INR International Normalized Ratio 1.1 INR Coagulation Comments Sodium Level 139 MMOL/L 140 MMOL/L Potassium Level 3.4 MMOL/L 3.2 MMOL/L Chloride Level 98 MMOL/L 101 MMOL/L Carbon Dioxide Level 30.6 MMOL/L 29.8 MMOL/L Anion Gap 10 9 Blood Urea Nitrogen 34 MG/DL 21 MG/DL Creatinine 0.94 MG/DL 0.76 MG/DL Estimated GFR/1.73 m2 60 ML/MIN 77 ML/MIN BUN/Creatinine Ratio 36.2 27.6 Glucose Level 103 MG/DL 87 MG/DL Hemoglobin A1c 4.9 % Calcium Level 9.5 MG/DL 8.8 MG/DL Magnesium Level 2.2 MG/DL 2.1 MG/DL Total Bilirubin 0.9 MG/DL 0.8 MG/DL Aspartate Amino Transf (AST/SGOT) 26 U/L 24 U/L Alanine Aminotransferase (ALT/SGPT) 24 U/L 19 U/L Alkaline Phosphatase 94 IU/L 88 IU/L Total Creatine Kinase 88 U/L Pro-B-Type Natriuretic Peptide 183 PG/ML Total Protein 8.8 G/DL 8.3 G/DL Albumin 3.5 G/DL 3.2 G/DL Globulin 5.3 G/DL 5.1 G/DL Albumin/Globulin Ratio 0.7 0.6 Thyroid Stimulating Hormone (TSH) 0.95 ulU/ml Chemistry Comments D-Dimer 10.98 MG/L FEU D-Dimer Comment Osmolality 304 MOSM/K Procalcitonin 0.05 NG/ML Urine Specimen Description Cln catch midstream Urine Color Yellow Urine Clarity Slightly cloudy Urine pH 7.0 Urine Specific [place] <=1.005 Urine Protein Negative mg/dl Urine Glucose (UA) Negative mg/dl Urine Ketones Negative mg/dl Urine Occult Blood Negative Urine Nitrite Positive Urine Bilirubin Negative Urine Urobilinogen 0.2 E.U/dL Urine Leukocyte Esterase Negative Urine RBC 0-2 /HPF Urine WBC 5-10 /HPF Urine Squamous Epithelial Cells Few /LPF Urine Bacteria 2+ /HPF Urine Culture Indicated Indicated Volume Urine Centrifuged 10 ml Urine Osmolality 470 MOSM/K Urine Random Creatinine 61.0 MG/DL Urine Random Total Protein 29.0 MG/DL Urine Random Sodium 16 MEQ/L Urine Comment Erythrocyte Sedimentation Rate 40 MM/HR Triglycerides Level 86 MG/DL Cholesterol Level 101 MG/DL LDL Cholesterol 42 MG/DL HDL Cholesterol 48 MG/DL Cholesterol/HDL Ratio 2.1 HIV (1&2) Antibody Non-reactive Test 08/08/25 07:46 Glucometer 89 mg/dl Microbiology 08/08/25 Urine Culture - Preliminary, Resulted Culture received. 08/07/25 MRSA Screen - Preliminary, Resulted Culture received. Vitals were stable at the moment with normal temperature, AR 89/minute, RR 20/minute, BP 120/73 mm Hg, pulse oximetry 92% on room air. On examination, General: Well alert, well oriented, not confused, not agitated, not in acute distress, well cooperated during the physical. HEENT: Conjunctive are pink, sclerae clear, no icterus, pupil is equal in both sides, reactive to light, no ear discharge, no pharyngeal erythema or an edema, mouth and lips are dry. Neck: Supple, no JVD, no lymphadenopathy and thyromegaly. Lymphadenopathy: largest one 3 x 4 cm oval shaped firm to hard in consistency partially mobile located at the right anterior cervical neck, numerous small hard lymph nodes along the lateral border of SCM muscle, supra clavicular LN but no subclavicular LN were examined. NO Bilateral axillary LN and Inguinal LN were large enough to be palpated except for the some small LN in the right axilla. NO submentle and submandibular LN adenopathy. NO occipital and posterior cervical lymphadenopathy. Lungs:Equal air entry on both lungs, widespread rhonchi bilaterally which are getting better this morning. Heart: S1-S2 regular sinus rhythm and, regular rate, no gallops, no rubs, no murmurs Abdomen: No visible peristalsis, Bowel sounds present on auscultation, soft, nontender, no guarding, no rigidity Extremities: No obvious deformities, no pitting edema bilaterally, capillary refill intact, able to wiggle toes both sides, peripheral pulsations are intact on both sides. some calf muscle wasting were noted. SODA CLERK: No focal neurological deficits, no motor and sensory weakness in all 4 extremities, could move all 4 extremities Musculoskeletal: No joint swelling, deformities, inflammations, and no scoliosis and back tenderness Skin: No active skin lesions and rashes Discharge instructions: Follow up with Dr Wright in his office Monday : Please call Monday for time. [phone] Dr Wright office will call in pain medication -immediate return to ER for any emergency conditions including progressive severe shortness of breath, passing out episodes, chest pain/pressure/discomfort, etc. -follow up with PCP, Dr. Carson surgery, Dr. Oc Price oncology, and biopsy results follow up for further management plan. -breathing exercises -inhalation therapy as needed -control the generalized pain with the prescribed pain medications by Dr. Wright -please cautiously use the meloxicam for the pain, try to use Tylenol for generalized pain as much as possible for the breakthrough pain along with Dr. Wright prescribed pain medications Resident MD attestation: Patient was seen, examined and discussed with attending MD, Dr. Blaze SRINIVASAN MD Internal Medicine Resident, PGY3 [facility] *Problems/Diagnosis: (1) Mediastinal mass Status: Chronic Total Time Spent on D/C: > 30 Minutes Date of Service: Aug 08, 2025 Billing Provider: HARRY ARGUETA MD Common Visit Codes: 03331-[id number] DISCH DAY <30MIN VERNA SRINIVASAN, RES Aug 08, 2025 18:51 HARRY ARGUETA MD Aug 12, 2025 07:30
[2025-08-08] MEDS ORDERED: dexamethasone 4mg/ml inj INJ ONE (19:14)
--- NOTE | 2025-08-09 18:38 | CONSULTATION ---
DATE OF CONSULTATION: 08/07/2025 DICTATING PHYSICIAN: Yon Wright MD REASON FOR CONSULTATION: Evaluation of abnormal CT scan. HISTORY OF PRESENT ILLNESS: The patient is a 65-year-old female with hypertension, thyroid disorder, developed progressive shortness of breath. Subsequent CAT scan revealed extensive mediastinal and cervical adenopathy as well as abdominal adenopathy. She was simply admitted in anticipation of an excisional biopsy of the cervical node to obtain a diagnosis. On further questioning, the patient states she was in good health up until November of this year when she developed lower extremity symptoms and subsequent progressive shortness of breath. Also developed diffuse pain in both her back and left leg. She has had approximately 15 pounds of weight loss. No complaints of fever or chills. PAST MEDICAL HISTORY: Hypertension, thyroid disorder. PAST SURGICAL HISTORY: Cholecystectomy. HOME MEDICATIONS: See chart. ALLERGIES: None. SOCIAL HISTORY: She lives with her . She has a history of tobacco use as well as alcohol use. REVIEW OF SYSTEMS: Please see H and P. PHYSICAL EXAMINATION: GENERAL: The patient is well-nourished female in no distress. VITAL SIGNS: Unremarkable. NECK: Shows an enlarged cervical node beneath the right mandible. HEART: Regular rate and rhythm. LUNGS: Clear to auscultation. ABDOMEN: Benign. EXTREMITIES: unremarkable. NEUROLOGIC: Nonfocal. LABORATORY DATA: WBC 7.9, hematocrit of 34, platelet count 320. Chemistries unremarkable. IMAGING STUDIES: CT of the neck reveals multiple enlarged nodes in the right supraclavicular and anterior cervical region. CT of the chest, abdomen, and pelvis confirms the presence of a large mediastinal mass with mediastinal adenopathy, axillary adenopathy. CT of the abdomen reveals a 2 cm adrenal nodule. There is retroperitoneal and pelvic adenopathy identified. IMPRESSION: * Mediastinal mass with mediastinal adenopathy. Question etiology. * Cervical adenopathy. Question etiology. * Abdominal adenopathy. Question etiology. * Hypertension. * History of hypothyroidism. * History of tobacco use. RECOMMENDATIONS: Excisional biopsy of enlarged cervical mass. Yon Wright MD TID: [id number] RECEIPT: [id number] KB/[facility] cc: Db Renae MD
[2025-08-10 09:21] LABS: IMMUNOGLOBULIN G, QN, SERUM 2102 mg/dL (586-1602); IMMUNOGLOBULIN M, QN, SERUM 237 mg/dL (26-217)
--- NOTE | 2025-08-11 07:14 | ELECTROCARDIOGRAPH REPORT ---
[facility] Test Date: 2025-08-08 Test Time: 09:52:52 Pat Name: RANDELL LOVE Department: [facility] 3 Patient ID: [facility]-[id number] Room: [place] [address] B Gender: F Square Cutter: : 1960 Requested By: VIVIENNE BASSETT Order Number: [id number] Reading MD: Dr. DEBO Nunez Measurements Intervals [place] Rate: 99 P: 64 [place]: 136 QRS: 60 QRSD: 143 T: -58 QT: 399 QTc: 513 Interpretive Statements Sinus tachycardia Ventricular bigeminy Right bundle branch block Electronically Signed On 08-11-2025 17:48:[address] DEBO Nunez Please click the below link to view image of tracing.
[2025-08-12 05:30] LABS: HBSAG SCREEN Negative (Negative)
--- NOTE | 2025-08-12 07:54 | PATHOLOGY REPORT ---
[facility] [address] [place] [address] SURGICAL PATHOLOGY REPORT CaseNumber: [id number] Surgeon:Yon Wright M.D. CLINICAL INFORMATION CLINICAL INFORMATION: Right neck mass. DIAGNOSIS DIAGNOSIS: MASS, RIGHT CERVICAL NECK, SURGICAL EXCISION - METASTATIC POORLY DIFFERENTIATED ADENOCARCINOMA, CONSISTENT WITH A LUNG PRIMARY - DIAGNOSIS SUPPORTED BY IMMUNOHISTOCHEMISTRY COMMENT NOTE: The above-described histologic, cytologic and immunohistochemical features support the diagnosis of a poorly differentiated metastatic adenocarcinoma. The expression of CK7 without expression of CK20, together with expression of TTF-1, supports the conclusion of a primary lung adenocarcinoma. This case has been reviewed by Dr. Diego Wilson, who agrees with this diagnosis. MICROSCOPIC DESCRIPTION MICROSCOPIC DESCRIPTION: Reviewed is a touch prep slide, a frozen section slide, and three H&E-stained slides. The specimen consists of lymph node tissue with extensive effacement by sheets and clusters of malignant cells. The tumor cell nuclei are moderately to significantly enlarged and moderately pleomorphic. The nuclear chromatin is coarsely granular to vesicular. The nucleoli are small or moderately enlarged and are generally multiple. The surrounding cytoplasm is present in moderate to abundant amounts. Two or three mitotic figures are identified per high-powered field in most areas. Immunohistochemistry is as follows: AE1/3 .... Positive CK7 .... Positive CK20 .... Negative MOC-31 .... Positive TTF-1 .... Positive CDX-2 .... Negative SATB2 .... Negative p40 .... Scattered expression p16 .... Positive PAX8 .... Negative CD3 .... Negative; small T-cells positive CD20 .... Negative; small B-cells positive PAX5 .... Negative; small B-cells positive CD15 .... Negative; granulocytic cells positive CD30 .... Negative; immunoblasts positive CD45 .... Negative; small lymphocytes positive Melan-A .... Negative MART-1 .... Negative SOX-10 .... Negative PRAME .... Positive GROSS DESCRIPTION GROSS DESCRIPTION: Received unfixed in the operating room labeled with the patient's name, number, and "neck mass" is a 2.5 cm colon-white lymph node candidate. The specimen is examined at the time of surgery by Dr. Ac and a portion of the tissue is submitted for frozen section. INTRAOPERATIVE CONSULTATION WITH FROZEN SECTION DIAGNOSIS BY Dr. Ac at the time of surgery: "High-grade malignancy."(Performed at [address] [address]) A portion of the tissue is submitted for flow cytometry which appear reported separately. Sections are submitted as follows: A1) Posterior Frozen section remnantA2-A3) Repairer Veneer Sheet sections of remaining unfrozen tissue Electronically signed by: Sim Minaya M.D. 08/12/2025 7:13:00 AM
== END 2025-08-08 19:15 | disposition home or self-care (01) | DRG 606 ==
LOC: ER 14:00 → ED HOLD 18:24 → UNDOADMIN 19:56 → ED HOLD 19:56 → EDBEDREQ 21:00 → SUR 3N 21:45 → ED HOLD 21:45
PROVIDERS: ADMIT Family Medicine; ATTEND Family Medicine
PROC: BW251ZZ Computerized Tomography (CT Scan) of Chest, Abdomen and Pelvis using Low Osmolar Contrast (ICD-10-PCS; 2025-08-07)
PROC: BW2F1ZZ Computerized Tomography (CT Scan) of Neck using Low Osmolar Contrast (ICD-10-PCS; 2025-08-07)
PROC: 0WB60ZX Excision of Neck, Open Approach, Diagnostic (ICD-10-PCS; principal; 2025-08-08 10:48)
DX: R22.1 Localized swelling, mass and lump, neck (principal); N17.0 Acute kidney failure with tubular necrosis; C78.7 Secondary malignant neoplasm of liver and intrahepatic bile duct; C78.89 Secondary malignant neoplasm of other digestive organs; C79.72 Secondary malignant neoplasm of left adrenal gland; C79.51 Secondary malignant neoplasm of bone; E86.0 Dehydration; I10 Essential (primary) hypertension; E03.9 Hypothyroidism, unspecified; E87.6 Hypokalemia; E87.8 Other disorders of electrolyte and fluid balance, not elsewhere classified; I71.9 Aortic aneurysm of unspecified site, without rupture; Z87.891 Personal history of nicotine dependence
CPT/HCPCS: 96374; 99285; Z7506; 36415; 70491; 71260; 74177; 80053; 80061; 81001; 82550; 82570; 82784; 82948; 83036; 83735; 83880; 83930; 83935; 84145; 84155; 84156; 84165; 84166; 84300; 84443; 85025; 85379; 85610; 85651; 86334; 86335; 86703; 86706; 86885; 86900; 86901; 87077; 87081; 87088; 87186; 87340; 93005; 94760; A4618; A6258; A6449; A7000; G0378; J0690; J1100; J1171; J2250; J2270; J2704; J3010; J3411; J3480; J3490; J7030; J7120; Q9967

== ENCOUNTER 2025-08-22 17:30 | Inpatient (IN) | payer BC ==
[~2025-08-22] VITALS: Ht 162.6 cm; Wt 65.9 kg
[~2025-08-22 17:30] MED LIST: AMLO10TA13 PO; LEVO125T PO; MELO-102 PO; ROSU10TA98 PO
--- NOTE | 2025-08-22 18:04 | ELECTROCARDIOGRAPH REPORT ---
[facility] Test Date: 2025-08-22 Test Time: 18:01:43 Pat Name: RANDELL LOVE Department: [facility] Patient ID: [facility]-[id number] Room: Gender: F System Consultant: : 1960 Requested By: ANNALISE PEGUERO Order Number: [id number] Reading MD: Measurements Intervals [place] Rate: 111 P: 47 RI: 133 QRS: 60 QRSD: 134 T: 41 QT: 356 QTc: 484 Interpretive Statements Sinus tachycardia Paired ventricular premature complexes Probable left atrial enlargement Right bundle branch block Please click the below link to view image of tracing.
[2025-08-22 18:05] LABS: ABG BASE EXCESS 2.1 mmol/L (-2.0-3.0); ABG HCO3 26.2 mmol/L (21.0-28.0); ABG OXYGEN SATURATION 86.2 % (94.0-98.0); ABG PCO2 (T) 37.6 mmHg (32.0-45.0); ABG PH (T) 7.458 (7.350-7.450); ABG PO2 (T) 51.1 mmHg (83.0-108.0); ALLEN'S TEST POSITIVE; FCOHb 0.3 % (0.5-1.5); FHHb 13.7 % (0.0-5.0); FIO2 100.0 mmHg/%; FMetHb 0.3 % (0.0-1.5); FO2Hb 85.7 % (94.0-98.0); MODE MASK - NRB; PATIENT TEMPERATURE 36.4; TOTAL HEMOGLOBIN 10.7 G/dl (12.0-16.0)
[2025-08-22 18:18] LABS: MEAN PLATELET VOLUME 8.2 FL (7.4-10.4); RED CELL DISTRIBUTION WIDTH 15.9 % (11.5-14.5)
[2025-08-22 18:25] VITALS: PULSE 116; RESP 20; O2SAT 93
--- NOTE | 2025-08-22 18:32 | RADIOLOGY REPORT ---
CHEST RADIOGRAPH Indication: CHEST PAIN Technique: DI CHEST,TWO VIEWS COMPARISON: None FINDINGS: The cardiac silhouette is enlarged. The lungs demonstrate bilateral patchy airspace opacities most pronounced in the bilateral lower lobes. The pulmonary vasculature is prominent. Small bilateral pleural effusions, [id number]-left. Aortic atherosclerotic disease.. There is no pneumothorax. IMPRESSION: As above
[2025-08-22 18:58] LABS: CREATININE 1.19 MG/DL (0.40-0.90); TOTAL CARBON DIOXIDE 33.2 MMOL/L (24-32); eCRCL 41 ML/MIN; eGFR 46 ML/MIN
[2025-08-22] MEDS: normal saline 500ml IV soln 500 ML IV ONE (19:37)
[2025-08-22 20:08] LABS: PRO BRAIN NATRIURETIC PEPTIDE 592 PG/ML (0-125)
[2025-08-22] MEDS ORDERED: iohexol 300mg/ml 100ml inj. ONE (20:14)
[2025-08-22 20:56] VITALS: PULSE 113; RESP 19; O2SAT 94
--- NOTE | 2025-08-22 21:09 | RADIOLOGY REPORT ---
Exam: CT CT CHEST ABDOMEN PELVIS W/ IV CONTRAST History: Acute change in respiratory status, new lung cancer diagnosis, rule out asp Comparison Study: CT CT CHEST ABDOMEN PELVIS IV CON W/ IV CONTRAST on DOS: 08/07/25 Technique: Multidetector spiral CT of the chest, abdomen and pelvis was performed from lower neck to pubic symphysis. Intravenous contrast was administered during this examination. Portal venous imaging was obtained. Axial, coronal and sagittal multiplanar reformats were performed by the technologist on a separate workstation. Radiation Dose : 1. Chest/Abdomen/Pelvis: CTDIvol 11.3 mGy, DLP 999 mGy*cm. Findings: Lower neck: Normal thyroid. Lungs: Severe multifocal pneumonia throughout both lungs, most prominent at the bases. Heart/Vascular Structures: Normal heart size. No pericardial effusion. Lymph Nodes: Extensive mediastinal lymphadenopathy including a large conglomerate of lymph nodes in the paratracheal region measuring 7 cm in diameter. Pleura: No pleural effusion or significant pneumothorax. Liver: Cirrhotic liver. Gallbladder and Biliary Tree: Gallbladder is surgically absent. Spleen: Unremarkable Pancreas: The pancreas is normal in appearance without focal lesions or abnormal enhancement. Adrenal Glands: Unremarkable Kidneys: Kidneys demonstrate normal symmetric enhancement without focal lesions, calculi or hydronephrosis. Bladder: Unremarkable Bowel: The stomach is grossly normal in appearance. Small bowel and colon are normal in caliber and distribution. The appendix is not visualized; however, no secondary findings of acute appendicitis identified. Ascites: Absent Lymphadenopathy: Extensive retroperitoneal and bilateral inguinal lymphadenopathy, for example a left periaortic lymph node measuring up to 2.2 cm Abdominal Wall and Mesentery: Unremarkable. Vasculature: Aneurysmal dilatation of the infrarenal abdominal aorta measuring up to 3.2 cm. Pelvic Organs: Unremarkable Musculoskeletal: No aggressive focal bony lesions, acute fractures or dislocation. Chronic healed fracture deformity of the right inferior pubic rami. Grade 1 anterolisthesis of L5 on S1. Lytic lesion is seen in the left femoral head measuring up to 2.3 cm, concerning for bony metastatic lesion. IMPRESSION: 1. Severe multifocal pneumonia throughout both lungs, most prominent at the bases. 2. Extensive mediastinal, retroperitoneal and bilateral inguinal lymphadenopathy. Consider correlation with PET-CT. 3. Lytic lesion in the left femoral head measuring up to 2.3 cm, concerning for bony metastatic lesion. 4. Aneurysmal dilatation of the infrarenal abdominal aorta measuring up to 3.2 cm.
[2025-08-22] MEDS ORDERED: magnesium hydroxide 30ml (MOM) UD suspension PO PRN (22:20)
[2025-08-22] MEDS ORDERED: piperacillin/tazo 4.5gm/100ml 100 ML IV SCH (22:20)
[2025-08-22] MEDS ORDERED: magnesium sulf-water 2g/50mL 50 ML IV PRN (22:20)
[2025-08-22] MEDS ORDERED: HYDROcodone/acetaminophen 5mg/325mg tablet PO PRN (22:20)
[2025-08-22] MEDS ORDERED: magnesium sulf-water 4G/100mL 100 ML IV PRN (22:20)
[2025-08-22] MEDS ORDERED: magnesium Cl slow-release 64mg tablet PO PRN (22:20)
[2025-08-22] MEDS ORDERED: mag hydrox/Alum hydrox/simeth 30ml oral suspension PO PRN (22:20)
[2025-08-22] MEDS ORDERED: potassium Cl 20 mEq SR tablet PO PRN ×2 (22:20)
[2025-08-22 22:28] VITALS: PULSE 117; RESP 24; O2SAT 94
[2025-08-22] MEDS: normal saline 1000ml 1,000 ML IV SCH (22:38)
--- NOTE | 2025-08-22 22:39 | HISTORY AND PHYSICAL-Residence ---
History & Physical Providers to CC Resident Creating Document: ROVERTO PIERSON, BOBBI ~ History of Present Illness Primary Medical Doctor: ELLA MALCOLM Reason for Admit\Complaint: Respiratory failure History of Present Illness This is a 65-year-old female with history of hypertension, hyperlipidemia, hypothyroidism, recent diagnosis of metastatic lung adenocarcinoma was brought to the ER for hypoxia. She was recently admitted here for respiratory distress and discharged on 08/08/2025. During that admission she had an excisional biopsy of the right neck mass. Pathology report showed primary lung adenocarcinoma. CT chest abdomen and pelvis with contrast showed multiple metastases including bone. Patient received this diagnosis one week ago and is following up with [facility] oncology and has been initiated on radiation therapy. So far she got about 7 cycles of radiation. This morning when her daughter came to visitt she appeared very weak and pale, she took her to the regular appointment for radiation. Before the radiation was started, her vitals were checked which showed an oxygen saturation level of 50 and blood pressure of 90 / 50, heart rate of 120. She was initiated on 2 L of oxygen with nasal cannula and 1 L bolus was given and was then sent to ER. Currently patient complaints of pain in shoulders and legs and constipation for five days. She denies any difficulty in breathing. She reports chest pain with coughing. After the biopsy, she has been having difficulty in swallowing, cough on attempting to swallow. She has been drinking soup and ensure and is unable to swallow any solid food. Since the biopsy she has also having difficulty in swallowing her secretions and has gurgling sound in her throat. Also reports blood associated with cough. Also has been progressively weaker and currently needs assistance to walk. Also loss about 30 lb of weight in the last few months The patient seems to be unaware of the prognosis of her diagnosis. She wants her daughter to be the power of electron beam photo mask maker. The daughter was not nose previously and came to know the cancer diagnosis today. She seems to understand the prognosis but wants some time to discuss about it with her mother. Currently she wants her to be on full code. Allergies: Coded Allergies: No Known Allergies (Unverified , 08/22/25) Home Medications Home Medications Active Reported Rosuvastatin Calcium 10 Mg Tablet 1 Tab PO HS Amlodipine Besylate 10 Mg Tablet 1 Tab PO DAILY Synthroid (Levothyroxine Sodium) 125 Mcg Tablet 1 Tab PO DAILY Meloxicam 15 Mg Tablet 1 Tab PO DAILY Past Medical History Past Medical History Hypertension Hyperlipidemia Hypothyroidism Metastatic lung adenocarcinoma Past Surgical History Surgical History Comment Cholecystectomy Excisional biopsy of right neck mass Family History Family History: FH: breast cancer Sister FH: cancer MOTHER FH: lung cancer FATHER Past Social History Social History Comment She quit smoking five weeks ago, previously smoked about 3-4 cigarettes per day for more than 40 years She denies drinking alcohol Previously smoked marijuana Lives with her 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 ROS Constitutional: Reports: weakness Eyes: Denies: no symptoms reported, see HPI, pain, discharge, blurred vision, double vision, itching, photophobia, redness, tearing, other ENT: Denies: no symptoms reported, see HPI, ear pain, ear bleeding, ear discharge, hearing loss, ear ringing, nose pain, nose bleeding, nose congestion, nose discharge, throat pain, throat swelling, voice change, mouth pain, mouth bleeding, mouth swelling, other Respiratory: Reports: cough, hemoptysis, pain with breathing Cardiovascular: Denies: no symptoms reported, see HPI, chest pain, left arm pain, diaphoresis, lightheadedness, syncope, edema, palpitations, irregular heart rate, other Gastrointestinal: Reports: vomiting, constipated Genitourinary: Denies: no symptoms reported, see HPI, burning, discharge, dysuria, frequency, flank pain, hematuria, incontinence, pain, decreased urine output, urgency, other Neurological: Denies: no symptoms reported, see HPI, speech problem, headache, dizziness, fainting, tingling, left sided numbness, right sided numbness, left sided weakness, right sided weakness, problems walking, unable to move lower ext, unable to move upper ext, petit mal seizures, tonic-clonic seizures, cognitive dysfunction, other Integumentary: Denies: no symptoms reported, see HPI, rash, itching, lesions, lumps, bruise(s), wound(s), laceration(s), dryness, change in color, other Exam Vitals: Vital Signs Date Time Temp Pulse Resp B/P (MAP) Pulse Ox O2 Delivery O2 Flow Rate FiO2 08/22/25 22:15 117 13 128/86 (100) 91 08/22/25 20:56 15.0 100 08/22/25 17:56 97.2 General: General: Awake, alert, oriented. Mild distress HEENT: Conjunctive are pink, sclerae clear, poor dental hygiene Neck: Supple, no adenopathy, thyromegaly. Trachea is midline. Respiratory: Bilateral rhonchi at the bases. Cardiovascular: S1-S2 regular sinus rhythm and, regular rate, no gallops, no rubs, no murmurs Abdomen: Soft, nontender, nondistended, bowel sounds present Extremities: No edema, no cyanosis, pulsations intact Neurologic: Mental status: alert and conscious, oriented to place, person and time, normal speech. Skin: Warm and dry. Diagnostic Data Last Recorded Lab Results: [id number]/[id number] Diagnostic Data: Laboratory Tests Test 08/22/25 18:06 D-Dimer 10.76 MG/L FEU (0-0.50) H D-Dimer Comment Additional Plan Assessment This is a 65-year-old female with history of hypertension, hyperlipidemia, hypothyroidism, recent diagnosis of metastatic lung adenocarcinoma was brought to the ER for hypoxia. Patient also has dysphagia. On high-flow oxygen. She is being admitted for acute hypoxemic respiratory failure secondary to aspiration pneumonia. Plan Acute hypoxemic respiratory failure Possible aspiration pneumonia Currently on high-flow oxygen with nasal cannula. WBC count and procalcitonin in the normal range ABG showed a pH of 7.4, pCO2 normal, PO2 51 CT with IV contrast showed multifocal pneumonia. Started on Zosyn Q 8 500 mL bolus was given in the ER, started on D5W@ 100 mL/hour NPO Aspiration precautions Pulmonary embolism, ruled out Wells criteria-8.0 Patient is hypoxic and tachycardic D-dimer elevated, 10.3 CT chest with IV contrast showed no signs of pulmonary embolism. Dysphagia Patient has difficulty in swallowing with both liquids and solids Neck CT on 08/07/25 showed mediastinal mass enveloping and causing mass effect on trachea and obliterating the esophagus. Currently patient is on NPO Swallow evaluation ordered. Patient might need a PEG tube Metastatic lung adenocarcinoma CTA of chest abdomen and pelvis with contrast showed findings of multifocal pneumonia, extensive mediastinal, retroperitoneal, bilateral inguinal lymphadenopathy, lytic lesions in left femoral head. Pathology report showed primary lung adenocarcinoma with metastasis Patient has received about seven cycles of radiation therapy Goals of care discussed with patient's daughter who was in his previously, needs time to discuss about it with her mother, currently on full code. Hypernatremia, hyperchloremia Sodium 150, chloride 111 Likely secondary to dehydration and poor oral intake Started on D5W@ 100 mL/hour BMP q.8h Slow correction< 6 mEq/24 hr Type 2 ME Troponins 87, 117 Pending 3rd troponin ProBNP 592 Echo ordered Normocytic anemia Hemoglobin 10.3 Likely anemia of chronic disease Iron panel ordered Infrarenal abdominal aortic aneurysm CT with contrast showed infrarenal abdominal aortic aneurysm 3.2 cm. Hypertension Hypothyroidism Currently held home medications amlodipine and levothyroxine as the patient is on NPO. Code status: Full code DVT prophylaxis: Heparin 5000 q.8h Diet: NPO Prognosis: Poor Roverto Pierson M.D PGY2 Patient evaluated using HIPPA cpmplaint AV device Agree with plan as discussed with resident Also trend troponin/ EKG, cardiology consult Delmer Artis MD Date of Service: Aug 22, 2025 Billing Provider: DELMER ARTIS MD, PRAVAHIKA, RES Aug 22, 2025 22:39 DELMER ARTIS MD Aug 23, 2025 05:05
[2025-08-22] MEDS: morphine 4 MG/ML inj SYRINge IV ONE (23:10)
[2025-08-22 23:16] LABS: APTT 26 SECONDS (22-32); INR 1.2 INR
[2025-08-22] MEDS: piperacillin/tazo 3.375gm/50ml 50 ML IV SCH (23:18)
[2025-08-22 23:45] VITALS: BP 114/66; PULSE 111; RESP 16; TEMP 99.6; O2SAT 85
[2025-08-23] VITALS (14 sets, daily range): BP systolic 99–118; BP diastolic 62–77; PULSE 103–116; RESP 14–22; TEMP 97.7–97.9; O2SAT 91–100
[2025-08-23] MEDS: heparin, porcine 5000 units/ml vial SQ SCH (00:48)
[2025-08-23] MEDS: docusate sod 100mg capsule PO SCH (07:00)
[2025-08-23 07:25] LABS: MEAN PLATELET VOLUME 8.3 FL (7.4-10.4); RED CELL DISTRIBUTION WIDTH 15.8 % (11.5-14.5)
[2025-08-23 08:00] LABS: CREATININE 0.78 MG/DL (0.40-0.90); PHOSPHORUS 2.5 MG/DL (2.3-4.5); TOTAL CARBON DIOXIDE 31.8 MMOL/L (24-32); eCRCL 63 ML/MIN; eGFR 74 ML/MIN
[2025-08-23] MEDS: K and/or MAG REPLACEMENT MC SCH (08:00)
[2025-08-23 08:37] LABS: % IRON SATURATION 8 % (11-46)
[2025-08-23] MEDS: potassium Cl 40MEQ/1/2NS 520ml 520 ML IV PRN (09:09)
[2025-08-23 11:38] LABS: CREATININE 0.72 MG/DL (0.40-0.90); TOTAL CARBON DIOXIDE 32.1 MMOL/L (24-32); eCRCL 68 ML/MIN; eGFR 82 ML/MIN
--- NOTE | 2025-08-23 12:09 | PROGRESS NOTE ---
Daily Progress Note Providers to CC Complaint of shortness of Breath, still on high-flow oxygen nasal cannula ~ Central Line/PICC still needed: No Kinsey-Non Protocol Kinsey Indications Met/Not Met: F/C Indications Not Met Antibiotic Timeout Antibiotic Ordered?: Yes MRSA Education MRSA Education Provided to pt: Yes Subjective As above Objective Vital Signs Date Time Temp Pulse Resp B/P (MAP) Pulse Ox O2 Delivery O2 Flow Rate FiO2 08/23/25 11:02 106 18 100 25.0 100 08/23/25 11:00 97.8 100/62 (75) High Flow Nasal Cannula Vital signs, stable ,afebrile. Pulse Oximetry reflects adequate oxygenation. On high-flow oxygen nasal cannula, 25 L General: well developed, well nourished. Awake , alert, and oriented x4, resting comfortably in the bed, in no acute distress . Skin: Warm, dry, no pallor, no rash or petechiae. HEENT: Atraumatic, normocephalic, EOMI, anicteric sclera B; pink conjunctiva; PERRLA, normal oropharynx, moist oral and nasal mucosa. Tympanic membrane , nose , throat clear. Neck: Trachea midline. Supple, full range of motion, no JVD, bruit , hepatojugular reflex , lymphadenopathy or masses, or other lesions Cardiac: Regular rhythm, regular rate no murmurs, rubs, or gallops. Normal S1 and S2, no S3 noticed. PMI is normal. Respiratory: Multiple bilateral rales and wheezing associated with tachypnea; no crackles. Chest wall is symmetric and without deformity. No signs of trauma. Chest wall is nontender. No signs of respiratory distress. Resonance is normal upon percussion bilaterally. Gastrointestinal: Abdomen symmetric, non-distended, soft, non-tender, normal bowel sounds x4 quadrant, normoactive, no hepatosplenomegaly , no masses , no bruit, no flank pain bilaterally. No voluntary guarding, rebound, or rigidity. No tenderness to percussion. No pulsatile masses. Equal femoral pulses. No Preciado's sign or McBurney point tenderness. Back; no CVA tenderness bilaterally, no deformities. Neck and back are without deformity as well. No tenderness noted on palpation of the spinous processes. Spinous processes are midline. Cervical, thoracic, and lumbar paraspinal muscles are not tender and are without spasm. Musculoskeletal: Extremities, normal range of motion, non-tender, muscle strength 5/5 x 4. Negative Homans signs bilaterally on lower extremity. Distal pulses full symmetrical, no clubbing, cyanosis , edema. Neurological: Speech is clear, alert, and oriented x 4. No motor or sensory deficit, deep tendon reflexes normal, cerebellar intact. Cranial nerves II-XII intact. Psych: Alert and or appropriate, normal affect. Vascular: Good distal pulses, which are equal x4; capillary refill less than 2 seconds. Lymphatic, no lymphadenopathy. Result Diagram: 08/23/25 0659 08/23/25 1111 Coagulation Studies Laboratory Tests Test 08/22/25 18:06 08/22/25 22:44 D-Dimer 10.76 MG/L FEU (0-0.50) H D-Dimer Comment Prothrombin Time 11.9 SECONDS (9.0-12.0) INR International Normalized Ratio 1.2 INR Activated Partial Thromboplast Time 26 SECONDS (22-32) Coagulation Comments Problem\Assessment\Plan Assessment/plan This is a 65-year-old female with history of hypertension, hyperlipidemia, hypothyroidism, recent diagnosis of metastatic lung adenocarcinoma was brought to the ER for hypoxia. Patient also has dysphagia. On high-flow oxygen. She is being admitted for acute hypoxemic respiratory failure secondary to aspiration pneumonia. Plan Acute hypoxemic respiratory failure Bilateral aspiration pneumonia Sepsis Positive blood culture Currently on high-flow oxygen with nasal cannula. WBC count and procalcitonin in the normal range ABG showed a pH of 7.4, pCO2 normal, PO2 51 CT with IV contrast showed multifocal pneumonia. Started on Zosyn Q 8 500 mL bolus was given in the ER, started on D5W@ 100 mL/hour NPO Aspiration precautions Pulmonary embolism, ruled out Wells criteria-8.0 Patient is hypoxic and tachycardic D-dimer elevated, 10.3 CT chest with IV contrast showed no signs of pulmonary embolism. Dysphagia Patient has difficulty in swallowing with both liquids and solids Neck CT on 08/07/25 showed mediastinal mass enveloping and causing mass effect on trachea and obliterating the esophagus. Currently patient is on NPO Swallow evaluation ordered. Patient might need a PEG tube Metastatic lung adenocarcinoma CTA of chest abdomen and pelvis with contrast showed findings of multifocal pneumonia, extensive mediastinal, retroperitoneal, bilateral inguinal lymphadenopathy, lytic lesions in left femoral head. Pathology report showed primary lung adenocarcinoma with metastasis Patient has received about seven cycles of radiation therapy Goals of care discussed with patient's daughter who was in his previously, needs time to discuss about it with her mother, currently on full code. Hypernatremia, hyperchloremia Sodium 150, chloride 111 Likely secondary to dehydration and poor oral intake Started on D5W@ 100 mL/hour BMP q.8h Slow correction< 6 mEq/24 hr Type 2 PA Troponins 87, 117 Pending 3rd troponin ProBNP 592 Echo ordered Normocytic anemia Hemoglobin 10.3 Likely anemia of chronic disease Iron panel ordered Infrarenal abdominal aortic aneurysm CT with contrast showed infrarenal abdominal aortic aneurysm 3.2 cm. Hypertension Hypothyroidism Currently held home medications amlodipine and levothyroxine as the patient is on NPO. Code status: Full code DVT prophylaxis: Heparin 5000 q.8h Diet: NPO Prognosis: Poor Sepsis Screening Reassessment Date: Aug 23, 2025 Date of Service: Aug 23, 2025 Billing Provider: CATALINO BAY MD Common Visit Codes: [id number] INP/OBS CARE(HIGH) CATALINO BAY MD Aug 23, 2025 12:09
[2025-08-23 20:57] LABS: CREATININE 0.55 MG/DL (0.40-0.90); TOTAL CARBON DIOXIDE 34.0 MMOL/L (24-32); eCRCL 89 ML/MIN; eGFR > 90 ML/MIN
[2025-08-24] VITALS (14 sets, daily range): BP systolic 98–127; BP diastolic 46–68; PULSE 100–111; RESP 14–24; TEMP 97.2–97.8; O2SAT 92–96
[2025-08-24 06:33] LABS: MEAN PLATELET VOLUME 8.1 FL (7.4-10.4); RED CELL DISTRIBUTION WIDTH 15.5 % (11.5-14.5)
[2025-08-24 06:41] LABS: CREATININE 0.66 MG/DL (0.40-0.90); PHOSPHORUS 1.9 MG/DL (2.3-4.5); TOTAL CARBON DIOXIDE 35.0 MMOL/L (24-32); eCRCL 74 ML/MIN; eGFR 90 ML/MIN
--- NOTE | 2025-08-24 15:30 | CARDIOLOGY REPORT ---
APPROVED REPORT EXAM: Comprehensive 2D, Doppler, and color-flow Echocardiogram. 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 3.53 cm IVC 19.96 mm CO 3.6 L/min M-Mode Dimensions RVDd 2.71 (2.1-3.2cm) Left Atrium(MM) 4.10 (2.5-4.0cm) IVSd 1.21 (0.7-1.1cm) LVDd 3.70 (4.0-5.6cm) Aortic Root 2.60 (2.2-3.7cm) PWd 0.92 (0.7-1.1cm) Aortic Cusp Exc 0.88 (1.5-2.0cm) IVSs 1.24 cm MV EPSS 1.0 (<0.5cm) LVDs 2.38 (2.0-3.8cm) FS (%) 36 % PWs 1.43 cm ESV(Teich) 19.7 ml LVEF(%) 66 (>50%) Aortic Valve AoV Peak Jonathan. 189.8 cm/s AoV VTI 33.5 cm AO Peak GR. 14.4 mmHg AO Mean GR. 7 mmHg LVOT VTI 21.95 cm LVOT Peak Jonathan. 129.9 cm/s JASON(VTI)/BSA 2.11 cm2/m2 JASON (VTI) 2.11 cm2 AV DI 0.66 % Mitral Valve MV E Velocity 58.3 cm/s MV Peak Gr. 6 mmHg MV DECEL TIME 144 ms MV A Velocity 99.4 cm/s MV Mean Gr. 3 mmHg E/A Ratio 0.6 MV VMax 124.9 cm/s MV VMean 85.9 cm/s MVA VTI 3.95 cm2 MV VTI 17.9 cm Tricuspid Valve TR P. Velocity 290 cm/s RAP ESTIMATE 10 mmHg TR Peak Gr. 34 mmHg RVSP 44 mmHg LEFT VENTRICLE Normal LV size and wall thickness. Overall systolic function is normal. Overall LVEF is 65-70%. RIGHT VENTRICLE RV is normal size and function. Estimated PA systolic pressure is 44 mmHg. ATRIA Left atrium is mildly dilated. The right atrium size appears normal. AORTIC VALVE Trileaflet AV appears moderately sclerotic without stenosis or insufficiency. MITRAL VALVE Mild MV annular calcification without stenosis. Trace regurgitation. TRICUSPID VALVE TV appears structurally normal with mild regurgitation. Estimated PA systolic pressure of 44 mm of mercury PULMONIC VALVE Normal PV without stenosis, physiologic insufficiency. GREAT VESSELS The aortic root is normal in size. The ascending aorta is normal in size. IVC is normal in size and collapses less than 50% with inspiration. PERICARDIUM Normal pericardium. No pericardial effusion seen. Other Information Study Quality: Adequate Conclusion Overall LVEF is 65-70%. Normal LV size and wall thickness. Overall systolic function is normal. RV is normal size and function. Estimated PA systolic pressure is 44 mmHg. Left atrium is mildly dilated. The right atrium size appears normal. Trileaflet AV appears moderately sclerotic without stenosis or insufficiency. Mild MV annular calcification without stenosis. Trace regurgitation. TV appears structurally normal with mild regurgitation. Estimated PA systolic pressure of 44 mm of mercury Normal PV without stenosis, physiologic insufficiency. Normal pericardium. No pericardial effusion seen.
--- NOTE | 2025-08-24 17:31 | PROGRESS NOTE ---
Daily Progress Note Providers to CC ~ complaint, cough shortness of breath Central Line/PICC still needed: No Kinsey-Non Protocol Kinsey Indications Met/Not Met: F/C Indications Not Met Antibiotic Timeout Antibiotic Ordered?: Yes MRSA Education MRSA Education Provided to pt: Yes Subjective As above Objective Vital Signs Date Time Temp Pulse Resp B/P (MAP) Pulse Ox O2 Delivery O2 Flow Rate FiO2 08/24/25 15:51 103 18 92 20.0 80 08/24/25 14:30 97.3 99/60 (73) 08/24/25 08:10 High Flow Nasal Cannula Vital signs, stable ,afebrile. Pulse Oximetry reflects adequate oxygenation. Is on high-flow nasal cannula 20 L General: well developed, well nourished. Awake , alert, and oriented x4, resting comfortably in the bed, in no acute distress . Skin: Warm, dry, no pallor, no rash or petechiae. HEENT: Atraumatic, normocephalic, EOMI, anicteric sclera B; pink conjunctiva; PERRLA, normal oropharynx, moist oral and nasal mucosa. Tympanic membrane , nose , throat clear. Neck: Trachea midline. Supple, full range of motion, no JVD, bruit , hepatojugular reflex , lymphadenopathy or masses, or other lesions Cardiac: Regular rhythm, regular rate no murmurs, rubs, or gallops. Normal S1 and S2, no S3 noticed. PMI is normal. Respiratory: Equal breath sounds bilaterally, associated with multiple rales and wheezing and tachypnea; Chest wall is symmetric and without deformity. No signs of trauma. Chest wall is nontender. No signs of respiratory distress. Resonance is normal upon percussion bilaterally. Gastrointestinal: Abdomen symmetric, non-distended, soft, non-tender, normal bowel sounds x4 quadrant, normoactive, no hepatosplenomegaly , no masses , no bruit, no flank pain bilaterally. No voluntary guarding, rebound, or rigidity. No tenderness to percussion. No pulsatile masses. Equal femoral pulses. No Preciado's sign or McBurney point tenderness. Back; no CVA tenderness bilaterally, no deformities. Neck and back are without deformity as well. No tenderness noted on palpation of the spinous processes. Spinous processes are midline. Cervical, thoracic, and lumbar paraspinal muscles are not tender and are without spasm. Musculoskeletal: Extremities, normal range of motion, non-tender, muscle strength 5/5 x 4. Negative Homans signs bilaterally on lower extremity. Distal pulses full symmetrical, no clubbing, cyanosis , edema. Neurological: Speech is clear, alert, and oriented x 4. No motor or sensory deficit, deep tendon reflexes normal, cerebellar intact. Cranial nerves II-XII intact. Psych: Alert and or appropriate, normal affect. Vascular: Good distal pulses, which are equal x4; capillary refill less than 2 seconds. Lymphatic, no lymphadenopathy. Result Diagram: 08/24/[id number] Coagulation Studies Laboratory Tests Test 08/22/25 18:06 08/22/25 22:44 D-Dimer 10.76 MG/L FEU (0-0.50) H D-Dimer Comment Prothrombin Time 11.9 SECONDS (9.0-12.0) INR International Normalized Ratio 1.2 INR Activated Partial Thromboplast Time 26 SECONDS (22-32) Coagulation Comments Problem\Assessment\Plan Assessment/plan This is a 65-year-old female with history of hypertension, hyperlipidemia, hypothyroidism, recent diagnosis of metastatic lung adenocarcinoma was brought to the ER for hypoxia. Patient also has dysphagia. On high-flow oxygen. She is being admitted for acute hypoxemic respiratory failure secondary to aspiration pneumonia. Plan Acute hypoxemic respiratory failure Bilateral aspiration pneumonia Sepsis Positive blood culture Currently on high-flow oxygen with nasal cannula. WBC count and procalcitonin in the normal range ABG showed a pH of 7.4, pCO2 normal, PO2 51 CT with IV contrast showed multifocal pneumonia. Started on Zosyn Q 8 500 mL bolus was given in the ER, started on D5W@ 100 mL/hour NPO Aspiration precautions Pulmonary embolism, ruled out Wells criteria-8.0 Patient is hypoxic and tachycardic D-dimer elevated, 10.3 CT chest with IV contrast showed no signs of pulmonary embolism. Dysphagia Patient has difficulty in swallowing with both liquids and solids Neck CT on 08/07/25 showed mediastinal mass enveloping and causing mass effect on trachea and obliterating the esophagus. Currently patient is on NPO Swallow evaluation ordered. Patient might need a PEG tube Metastatic lung adenocarcinoma CTA of chest abdomen and pelvis with contrast showed findings of multifocal pneumonia, extensive mediastinal, retroperitoneal, bilateral inguinal lymphadenopathy, lytic lesions in left femoral head. Pathology report showed primary lung adenocarcinoma with metastasis Patient has received about seven cycles of radiation therapy Goals of care discussed with patient's daughter who was in his previously, needs time to discuss about it with her mother, currently on full code. Hypernatremia, hyperchloremia Sodium 150, chloride 111 Likely secondary to dehydration and poor oral intake Started on D5W@ 100 mL/hour BMP q.8h Slow correction< 6 mEq/24 hr Type 2 GA Troponins 87, 117 Pending 3rd troponin ProBNP 592 Echo ordered Normocytic anemia Hemoglobin 10.3 Likely anemia of chronic disease Iron panel ordered Infrarenal abdominal aortic aneurysm CT with contrast showed infrarenal abdominal aortic aneurysm 3.2 cm. Hypertension Hypothyroidism Currently held home medications amlodipine and levothyroxine as the patient is on NPO. Code status: Full code DVT prophylaxis: Heparin 5000 q.8h Diet: NPO Prognosis: Poor Date of Service: Aug 24, 2025 Billing Provider: CATALINO BAY MD Common Visit Codes: [id number] INP/OBS CARE(HIGH) CATALINO BAY MD Aug 24, 2025 17:31
[2025-08-24] MEDS: ondansetron/PF 4mg/2ml inj IV PRN (19:42)
[2025-08-25] VITALS (12 sets, daily range): BP systolic 102–146; BP diastolic 67–87; PULSE 101–111; RESP 15–18; TEMP 97.2–98.2; O2SAT 78–97
[2025-08-25] MEDS: potassium Cl 40MEQ/1/2NS 520ml 520 ML IV ONE (00:29)
[2025-08-25 07:35] LABS: MEAN PLATELET VOLUME 8.0 FL (7.4-10.4); RED CELL DISTRIBUTION WIDTH 15.4 % (11.5-14.5)
[2025-08-25 09:01] LABS: CREATININE 0.46 MG/DL (0.40-0.90); TOTAL CARBON DIOXIDE 36.8 MMOL/L (24-32); eCRCL 107 ML/MIN; eGFR > 90 ML/MIN
[2025-08-25 09:02] LABS: PHOSPHORUS 2.5 MG/DL (2.3-4.5)
[2025-08-25] MEDS: vancomycin/NS 1 GM ADD-VANTAGE 250 ML IV SCH (11:10)
[2025-08-25] MEDS ORDERED: morphine 10mg/ml inj. IV PRN ×2 (14:50)
--- NOTE | 2025-08-25 18:53 | PROGRESS NOTE ---
Daily Progress Note Providers to CC Resting comfortably in the bed ~ Central Line/PICC still needed: No Kinsey-Non Protocol Kinsey Indications Met/Not Met: F/C Indications Not Met Antibiotic Timeout Antibiotic Ordered?: No MRSA Education MRSA Education Provided to pt: No Subjective As above Objective Vital Signs Date Time Temp Pulse Resp B/P (MAP) Pulse Ox O2 Delivery O2 Flow Rate FiO2 08/25/25 17:24 16 08/25/25 16:18 106 97 25.0 100 08/25/25 11:00 98.2 115/80 (92) High Flow Nasal Cannula Vital signs, stable ,afebrile. Pulse Oximetry reflects adequate oxygenation. General: well developed, well nourished. Somnolent, resting comfortably in the bed, in no acute distress . Skin: Warm, dry, no pallor, no rash or petechiae. HEENT: Atraumatic, normocephalic, EOMI, anicteric sclera B; pink conjunctiva; PERRLA, normal oropharynx, moist oral and nasal mucosa. Tympanic membrane , nose , throat clear. Neck: Trachea midline. Supple, full range of motion, no JVD, bruit , hepatojugular reflex , lymphadenopathy or masses, or other lesions Cardiac: Regular rhythm, regular rate no murmurs, rubs, or gallops. Normal S1 and S2, no S3 noticed. PMI is normal. Respiratory: Equal breath sounds bilaterally, no tachypnea; lungs clear to auscultation bilaterally, no wheezing ,rub or rales, or crackles. Chest wall is symmetric and without deformity. No signs of trauma. Chest wall is nontender. No signs of respiratory distress. Resonance is normal upon percussion bilaterally. Gastrointestinal: Abdomen symmetric, non-distended, soft, non-tender, normal bowel sounds x4 quadrant, normoactive, no hepatosplenomegaly , no masses , no bruit, no flank pain bilaterally. No voluntary guarding, rebound, or rigidity. No tenderness to percussion. No pulsatile masses. Equal femoral pulses. No Preciado's sign or McBurney point tenderness. Back; no CVA tenderness bilaterally, no deformities. Neck and back are without deformity as well. No tenderness noted on palpation of the spinous processes. Spinous processes are midline. Cervical, thoracic, and lumbar paraspinal muscles are not tender and are without spasm. Musculoskeletal: Extremities, normal range of motion, non-tender, muscle strength 5/5 x 4. Negative Homans signs bilaterally on lower extremity. Distal pulses full symmetrical, no clubbing, cyanosis , edema. Neurological: Somnolent Vascular: Good distal pulses, which are equal x4; capillary refill less than 2 seconds. Lymphatic, no lymphadenopathy. Result Diagram: 08/25/25 0709 08/25/25 0709 Coagulation Studies Laboratory Tests Test 08/22/25 18:06 08/22/25 22:44 D-Dimer 10.76 MG/L FEU (0-0.50) H D-Dimer Comment Prothrombin Time 11.9 SECONDS (9.0-12.0) INR International Normalized Ratio 1.2 INR Activated Partial Thromboplast Time 26 SECONDS (22-32) Coagulation Comments Problem\Assessment\Plan Assessment/plan This is a 65-year-old female with history of hypertension, hyperlipidemia, hypothyroidism, recent diagnosis of metastatic lung adenocarcinoma was brought to the ER for hypoxia. Patient also has dysphagia. On high-flow oxygen. She is being admitted for acute hypoxemic respiratory failure secondary to aspiration pneumonia. Plan Acute hypoxemic respiratory failure Bilateral aspiration pneumonia Sepsis Positive blood culture Currently on high-flow oxygen with nasal cannula. WBC count and procalcitonin in the normal range ABG showed a pH of 7.4, pCO2 normal, PO2 51 CT with IV contrast showed multifocal pneumonia. Started on Zosyn Q 8 500 mL bolus was given in the ER, started on D5W@ 100 mL/hour NPO Aspiration precautions Pulmonary embolism, ruled out Wells criteria-8.0 Patient is hypoxic and tachycardic D-dimer elevated, 10.3 CT chest with IV contrast showed no signs of pulmonary embolism. Dysphagia Patient has difficulty in swallowing with both liquids and solids Neck CT on 08/07/25 showed mediastinal mass enveloping and causing mass effect on trachea and obliterating the esophagus. Currently patient is on NPO Swallow evaluation ordered. Patient might need a PEG tube Metastatic lung adenocarcinoma CTA of chest abdomen and pelvis with contrast showed findings of multifocal pneumonia, extensive mediastinal, retroperitoneal, bilateral inguinal lymphadenopathy, lytic lesions in left femoral head. Pathology report showed primary lung adenocarcinoma with metastasis Patient has received about seven cycles of radiation therapy Goals of care discussed with patient's daughter who was in his previously, needs time to discuss about it with her mother, currently on full code. Hypernatremia, hyperchloremia Sodium 150, chloride 111 Likely secondary to dehydration and poor oral intake Started on D5W@ 100 mL/hour BMP q.8h Slow correction< 6 mEq/24 hr Type 2 HI Troponins 87, 117 Pending 3rd troponin ProBNP 592 Echo ordered Normocytic anemia Hemoglobin 10.3 Likely anemia of chronic disease Iron panel ordered Infrarenal abdominal aortic aneurysm CT with contrast showed infrarenal abdominal aortic aneurysm 3.2 cm. Hypertension Hypothyroidism Currently held home medications amlodipine and levothyroxine as the patient is on NPO. Code status: Full code DVT prophylaxis: Heparin 5000 q.8h Diet: NPO Prognosis: Poor Long discussion with the family regarding code status, family elected to have patient DNR comfort care only, comfort care orders initiated Sepsis Screening Reassessment Date: Aug 25, 2025 Date of Service: Aug 25, 2025 Billing Provider: CATALINO BAY MD Common Visit Codes: [id number] INP/OBS CARE(HIGH) CATALINO BAY MD Aug 25, 2025 18:53
[2025-08-25] MEDS ORDERED: docusate sod 100mg capsule PO SCH (20:00)
[2025-08-25] MEDS: diazepam inj 5 MG/ML inj. IV PRN (23:56)
[2025-08-26 03:25] VITALS: PULSE 106; RESP 18; O2SAT 90
[2025-08-26 06:00] VITALS: BP 93/61; PULSE 120; RESP 20; TEMP 98.7; O2SAT 82
[2025-08-26 07:33] VITALS: PULSE 121; RESP 22; O2SAT 76
[2025-08-26 08:00] VITALS: RESP 18; O2SAT 82
[2025-08-26] MEDS: morphine 10mg/0.5ml (conc. morphine) oral syringe PO PRN (09:31)
--- NOTE | 2025-08-26 14:54 | DISCHARGE SUMMARY ---
Discharge Summary Providers to Patient today 11: 25 minutes a.m. ~ Discharge Summary Assessment Hypertension Hyperlipidemia Hypothyroidism Metastatic lung adenocarcinoma Bilateral pneumonia community-acquired Gram-positive Gram-negative mix yasir Sepsis Bacteremia Acute respiratory hypoxic failure Hypernatremia Diabetes mellitus type 2 Abdominal aneurysm Hypertension poor control Anemia Dysphagia Admission Diagnosis: RESPIRATORY FAILURE Admission Diagnosis Comment: Hypertension Hyperlipidemia Hypothyroidism Metastatic lung adenocarcinoma Bilateral pneumonia community-acquired Gram-positive Gram-negative mix yasir Sepsis Bacteremia Acute respiratory hypoxic failure Hypernatremia Diabetes mellitus type 2 Abdominal aneurysm Hypertension poor control Anemia Dysphagia Hospital Course DATE OF ADMISSION: August 22, 2025 DATE OF DISCHARGE: August 26, 2025 Discharge Diagnosis\Comment: Hypertension Hyperlipidemia Hypothyroidism Metastatic lung adenocarcinoma Bilateral pneumonia community-acquired Gram-positive Gram-negative mix yasir Sepsis Bacteremia Acute respiratory hypoxic failure Hypernatremia Diabetes mellitus type 2 Abdominal aneurysm Hypertension poor control Anemia Dysphagia Operations\Procedures: Non Consultants: Non Complications: Condition on DC: Discharge Summary: This is a 65-year-old female with history of hypertension, hyperlipidemia, hypothyroidism, recent diagnosis of metastatic lung adenocarcinoma was brought to the ER for hypoxia. She was recently admitted here for respiratory distress and discharged on 08/08/2025. During that admission she had an excisional biopsy of the right neck mass. Pathology report showed primary lung adenocarcinoma. CT chest abdomen and pelvis with contrast showed multiple metastases including bone. Patient received this diagnosis one week ago and is following up with [facility] oncology and has been initiated on radiation therapy. So far she got about 7 cycles of radiation. This morning when her daughter came to visitt she appeared very weak and pale, she took her to the regular appointment for radiation. Before the radiation was started, her vitals were checked which showed an oxygen saturation level of 50 and blood pressure of 90 / 50, heart rate of 120. She was initiated on 2 L of oxygen with nasal cannula and 1 L bolus was given and was then sent to ER. Currently patient complaints of pain in shoulders and legs and constipation for five days. She denies any difficulty in breathing. She reports chest pain with coughing. After the biopsy, she has been having difficulty in swallowing, cough on attempting to swallow. She has been drinking soup and ensure and is unable to swallow any solid food. Since the biopsy she has also having difficulty in swallowing her secretions and has gurgling sound in her throat. Also reports blood associated with cough. Also has been progressively weaker and currently needs assistance to walk. Also loss about 30 lb of weight in the last few months The patient seems to be unaware of the prognosis of her diagnosis. She wants her daughter to be the power of contracts attorney. The daughter was not nose previously and came to know the cancer diagnosis today. She seems to understand the prognosis but wants some time to discuss about it with her mother. Currently she wants her to be on full code. To admission patient was evaluated treated extensively, he will condition gradually worsened, and family elected to have patient DNR and comfort care only today 11 and 25 minutes a.m. patient peacefully , family at bedside. *Problems/Diagnosis: (1) Lung cancer metastatic to bone Total Time Spent on D/C: > 30 Minutes Date of Service: Aug 26, 2025 Billing Provider: CATALINO BAY MD Common Visit Codes: 85599-BIG/OBS DISCH DAY >30min CATALINO BAY MD Aug 26, 2025 14:54
[2025-08-26] MEDS ORDERED: VANCOMYCIN LEVEL IV ONE (22:30)
== END 2025-08-26 14:01 | DRG 871 ==
LOC: ER 17:31 → ED HOLD 21:35 → EDBEDREQ 22:54 → PCU 3S 23:50
PROVIDERS: ADMIT Internal Medicine; ATTEND Family Medicine
PROC: BW251ZZ Computerized Tomography (CT Scan) of Chest, Abdomen and Pelvis using Low Osmolar Contrast (ICD-10-PCS; principal; 2025-08-22)
PROC: 5A0945A Assistance with Respiratory Ventilation, 24-96 Consecutive Hours, High Flow/Velocity Cannula (ICD-10-PCS; 2025-08-22)
DX: A41.9 Sepsis, unspecified organism (principal); E43 Unspecified severe protein-calorie malnutrition; I21.A1 Myocardial infarction type 2; J15.69 Pneumonia due to other Gram-negative bacteria; J15.9 Unspecified bacterial pneumonia; J96.01 Acute respiratory failure with hypoxia; J69.0 Pneumonitis due to inhalation of food and vomit; C79.51 Secondary malignant neoplasm of bone; Z51.5 Encounter for palliative care; C34.90 Malignant neoplasm of unspecified part of unspecified bronchus or lung; D64.9 Anemia, unspecified; I71.43 Infrarenal abdominal aortic aneurysm, without rupture; E11.9 Type 2 diabetes mellitus without complications; E03.9 Hypothyroidism, unspecified; I10 Essential (primary) hypertension; E87.0 Hyperosmolality and hypernatremia; Z66 Do not resuscitate; E87.8 Other disorders of electrolyte and fluid balance, not elsewhere classified; I71.40 Abdominal aortic aneurysm, without rupture, unspecified; E78.5 Hyperlipidemia, unspecified; K59.00 Constipation, unspecified; Z90.49 Acquired absence of other specified parts of digestive tract; Z92.3 Personal history of irradiation; Z68.24 Body mass index [BMI] 24.0-24.9, adult
CPT/HCPCS: 36415; 36600; 71046; 71260; 74177; 80048; 80053; 82728; 82803; 83540; 83550; 83605; 83735; 83880; 84100; 84132; 84145; 84484; 85018; 85025; 85379; 85610; 85730; 87040; 87077; 87081; 87186; 92508; 92616; 93005; 93306; 94760; 97161; 97530; 99285; A4314; A4615; A4620; A4624; A6213; G0378; J1644; J2270; J2405; J2543; J3360; J3373; J3480; J7030; J7040; J7042; J7070; Q9967